=== PATIENT | male | born 1950 | race Caucasian/White ===

== ENCOUNTER 2016-11-24 04:46 | Inpatient (IN) | payer MEDICARE, OTHER ==
[~2016-11-24] VITALS: Ht 182.9 cm; Wt 147.0 kg
[~2016-11-24 04:46] MED LIST: ASPI-482 PO; CARV3.12 PO; DILT120C97 PO; DOXY100T PO; FLUT1DIS3 IH; FURO-68 PO; METF500T4 PO; POTA10TA5 PO; PRED-299 PO; PROAIR HFA8.5 GM INH; PROVENTIL HFA6.7 GM IH; ZOLP10TA PO
[2016-11-24 04:56] VITALS: BP 109/72
[2016-11-24] MEDS ORDERED: ATOR10TA PO (05:38)
[2016-11-24] MEDS ORDERED: BUDE10.2 IH (05:38)
[2016-11-24] MEDS ORDERED: HYDR-2762 PO (05:38)
[2016-11-24] MEDS ORDERED: MELO-156 PO (05:38)
[2016-11-24] MEDS ORDERED: CARV6.25 PO (05:38)
[2016-11-24] MEDS ORDERED: ACETAMINOPHEN 325 MG TABLET. PO PRN (06:00)
[2016-11-24] MEDS ORDERED: GUAIFENESIN/CODEINE 100mg/10mg 5 ML LIQUID. PO PRN (06:00)
[2016-11-24] MEDS ORDERED: MORPHINE SULFATE 2 MG/ML DISP.SYRIN. IV PRN (06:00)
[2016-11-24] MEDS ORDERED: ONDANSETRON PF 4 MG/2 ML VIAL. IV PRN (06:00)
[2016-11-24] MEDS ORDERED: ALBUTEROL SULFATE 2.5 MG/3 ML NEBU. NEB PRN (06:15)
[2016-11-24 07:15] VITALS: BP 120/79
[2016-11-24] MEDS ORDERED: ALBUTEROL SULFATE 2.5 MG/3 ML NEBU. NEB SCH (08:00)
[2016-11-24 08:09] LABS: BASO # 0.7 x10^3/uL (0.0-0.2); BASO % 1 % (0-3); EOS % 1 % (0-3); HEMATOCRIT 40.2 % (39.0-53.0); HEMOGLOBIN 12.1 g/dL (13.0-17.5); LYMPH # 2.4 x10^3/uL (1.0-4.8); LYMPH % 4 % (24-48); MEAN CORPUSCULAR HEMOGLOBIN 30 pg (25-35); MEAN CORPUSCULAR HGB CONC 30 g/dL (31-37); MEAN CORPUSCULAR VOLUME 99 fL (79-100); MONO % 6 % (0-9); NEUT % 88 % (31-73); PLATELET COUNT 176 x10^3/uL (140-400); RED BLOOD COUNT 4.06 x10^6/uL (4.30-5.70); RED CELL DISTRIBUTION WIDTH 17.3 % (11.5-14.5)
[2016-11-24 08:16] LABS: INR 1.3 (0.8-1.1); PROTHROMBIN TIME PATIENT 15.1 SEC (11.7-14.0)
[2016-11-24 08:26] LABS: WHITE BLOOD COUNT 60.1 x10^3/uL (4.0-11.0)
[2016-11-24 08:45] LABS: ALBUMIN 3.1 g/dL (3.4-5.0); ALBUMIN/GLOBULIN RATIO 0.9 (1.0-1.7); CALCIUM 8.3 mg/dL (8.5-10.1); CREATININE 0.9 mg/dL (0.7-1.3); GFR 84.2; MAGNESIUM 1.6 mg/dL (1.8-2.4); TOTAL BILIRUBIN 0.5 mg/dL (0.2-1.0); TOTAL PROTEIN 6.5 g/dL (6.4-8.2)
[2016-11-24] MEDS: BUDESONIDE 0.5 MG/2 ML NEBU. NEB SCH ×2 (08:45→19:49)
[2016-11-24] MEDS: IPRATRPIUM/ALBUTEROL 0.5/2.5MG 3 ML NEBU. NEB SCH ×4 (08:45→19:49)
[2016-11-24] MEDS ORDERED: NON FORMULARY ITEM (Fluticasone/Salmeterol (Advair 250-50 Diskus) 1 PUFF) IH SCH (09:00)
[2016-11-24] MEDS ORDERED: NON FORMULARY ITEM (Budesonide/Formoterol Fumarate (Symbicort 160-4.5 Mcg Inhaler) 2 PUFF) IH SCH (09:00)
--- NOTE | 2016-11-24 09:15 | PDOC ---
Provider Note Provider Note dictated LYSSA WOODSON MD Nov 24, 2016 09:15
[2016-11-24 09:20] LABS: NUCLEATED RBC 2; PLT ESTIMATE ADEQUATE (ADEQUATE)
[2016-11-24 09:21] LABS: ANISOCYTOSIS PRESENT; POLYCHROMASIA PRESENT
[2016-11-24] MEDS: POTASSIUM CHLORIDE 10 MEQ TABLET.ER. PO SCH (09:22)
[2016-11-24] MEDS: CARVEDILOL 6.25 MG TABLET. PO SCH ×2 (09:23→17:53)
[2016-11-24] MEDS: METFORMIN 500 MG TABLET. PO SCH ×2 (09:23→17:53)
[2016-11-24] MEDS: DILTIAZEM HCL 120 MG CAP.ER.24H PO SCH (09:23)
[2016-11-24] MEDS: FUROSEMIDE 40 MG TABLET. PO SCH (09:24)
[2016-11-24] MEDS: MELOXICAM 7.5 MG TABLET PO SCH (09:24)
[2016-11-24] MEDS: ASPIRIN ENTERIC COATED 81 MG TABLET.DR. PO SCH (09:24)
--- NOTE | 2016-11-24 09:27 | PDOC2 ---
INES PAUL FIRE CONTROLMAN 11/24/16 0927: CARDIAC CONSULT DATE OF CONSULT Date of Consult DATE: 11/24/16 TIME: 09:25 REASON FOR CONSULT Reason for Consult: CHF REFERRING PHYSICIAN Referring Physician: Dr. Rendon SOURCE Source: Chart review, Patient HISTORY OF PRESENT ILLNESS HISTORY OF PRESENT ILLNESS This is a 66 yo male who initially presented to [facility] with complaints of increasing shortness of breath. Patient reports ongoing SOA for the last couple of days. Was in to see his PCP Tuesday and was told her had "blood cancer" and was apparently referred to the ED. Denies any recent chest pain, orthopnea, LE edema, dizziness, diaphoresis, or nausea/vomiting. No recent illness/fevers. Does report non-productive cough over the last few days. At [facility], WBC noted to be 69.19. Transfer recommended for oncology consult. Transfer initially arranged at [facility], but patient insisted on [facility]. Additional labs obtained at [place] include NT Pro BNP 3060 and troponin 0.01. CXR impression: some hilar prominence which may be from venous congestion with no large pleural effusions. EKG with AFIB, rate of 100. Patient reports compliance with medications. Per chart review, stress test in 01/2011 and 11/2011 with perfusion defect, at which time patient had declined cardiac cath. Patient was followed by our service in April of 2016, for which he was transferred from [facility] for a mildly abnormal MPI with preserved LV function. Cardiac catheterization was discussed at that time, for which patient opted for medical management and was to follow up with routine providers at [facility]. PAST MEDICAL HISTORY Past Medical History Cardiovascular: AFIB (not anticoagulated due to non-compliance per record review), CHF (chronic diastolic) Pulmonary: COPD (with chronic respiratory failure and home oxygen), Other ( sleep apnea untreated with CPAP) GI: Other (morbid obesity with BMI of 44) Endocrine: Diabetes (type II) PAST SURGICAL HISTORY Past Surgical History Appendectomy, Cholecystectomy, Cataract Removal (bilateral), Hernia Repair (BIH , umbilical) FAMILY HISTORY Family History Cancer (mother), Coronary Artery Disease (mother), Diabetes (mother, sister) SOCIAL HISTORY Social History Smoke: No (1989; 30 pack year history) ALCOHOL: none (1 beer/day) Drugs: None Lives with friends CURRENT MEDICATIONS CURRENT MEDICATIONS Current Medications Medications (Trade) Dose Ordered Sig/Daryl Route PRN Reason Start Time Stop Time Status Last Admin Dose Admin Budesonide (Pulmicort) 0.5 mg RTBID [facility] 11/24/16 08:00 11/24/16 08:45 Albuterol/ Ipratropium (Duoneb) 3 ml RTQID [facility] 11/24/16 08:00 11/24/16 08:45 ALLERGIES ALLERGIES: Coded Allergies: No Known Allergies (Verified Allergy, Unknown, 05/04/16) ROS Review of System 14 point ROS conducted with pertinent positives noted above in HPI. PHYSICAL EXAM General: Alert, Oriented X3, Cooperative, No acute distress HEENT: Atraumatic, Mucous membr. moist/pink Lungs: Other (diminished bases, fine exp wheeze ) Heart: Normal S1, Normal S2, No murmurs, Other (IRRR; not on tele ) Abdomen: Soft, Other (obese ) Extremities: No edema, Normal pulses Skin: No breakdown, No significant lesion Neuro: Normal speech, Sensation intact Psych/Mental Status: Mental status NL, Mood NL MUSCULOSKELETAL: Full range of motion without pain VITALS VITALS Vital Signs Date Time Temp Pulse Resp B/P Pulse Ox O2 Delivery O2 Flow Rate FiO2 11/24/16 08:49 96 Nasal Cannula 3.0 11/24/16 07:15 98.8 83 20 120/79 98.8 LABS Lab: Laboratory Tests Test 11/24/16 07:45 11/24/16 08:00 White Blood Count 60.1x10^3/uL (4.0-11.0) Red Blood Count 4.06x10^6/uL (4.30-5.70) Hemoglobin 12.1g/dL (13.0-17.5) Hematocrit 40.2% (39.0-53.0) Mean Corpuscular Volume 99fL (79-100) Mean Corpuscular Hemoglobin 30pg (25-35) Mean Corpuscular Hemoglobin Concent 30g/dL (31-37) Red Cell Distribution Width 17.3% (11.5-14.5) Platelet Count 176x10^3/uL (140-400) Neutrophils (%) (Auto) 88% (31-73) Lymphocytes (%) (Auto) 4% (24-48) Monocytes (%) (Auto) 6% (0-9) Eosinophils (%) (Auto) 1% (0-3) Basophils (%) (Auto) 1% (0-3) Neutrophils # (Auto) 53.1x10^3uL (1.8-7.7) Lymphocytes # (Auto) 2.4x10^3/uL (1.0-4.8) Monocytes # (Auto) 3.7x10^3/uL (0.0-1.1) Eosinophils # (Auto) 0.3x10^3/uL (0.0-0.7) Basophils # (Auto) 0.7x10^3/uL (0.0-0.2) Segmented Neutrophils % 30% (35-66) Band Neutrophils % 31% (0-9) Lymphocytes % 9% (24-48) Monocytes % 8% (0-10) Metamyelocytes % 3% (0-0) Myelocytes % 19% (0-0) Nucleated Red Blood Cells 2 Platelet Estimate Adequate (ADEQUATE) Polychromasia Present Basophilic Stippling Present Anisocytosis Present Prothrombin Time 15.1SEC (11.7-14.0) Prothromb Time International Ratio 1.3 (0.8-1.1) Sodium Level 144mmol/L (136-145) Potassium Level 4.0mmol/L (3.5-5.1) Chloride Level 101mmol/L (98-107) Carbon Dioxide Level 39mmol/L (21-32) Anion Gap 4 (6-14) Blood Urea Nitrogen 12mg/dL (8-26) Creatinine 0.9mg/dL (0.7-1.3) Estimated GFR (Cockcroft-Gault) 84.2 BUN/Creatinine Ratio 13 (6-20) Glucose Level 130mg/dL (70-99) Calcium Level 8.3mg/dL (8.5-10.1) Magnesium Level 1.6mg/dL (1.8-2.4) Total Bilirubin 0.5mg/dL (0.2-1.0) Aspartate Amino Transf (AST/SGOT) 26U/L (15-37) Alanine Aminotransferase (ALT/SGPT) 15U/L (16-63) Alkaline Phosphatase 47U/L (46-116) Total Protein 6.5g/dL (6.4-8.2) Albumin 3.1g/dL (3.4-5.0) Albumin/Globulin Ratio 0.9 (1.0-1.7) Glucose (Fingerstick) 132mg/dL (70-99) ECHOCARDIOGRAM ECHOCARDIOGRAM <Conclusion> This is a limited 2D study to assess ejection fraction. The left ventricle is mildly dilated. There is normal left ventricular wall thickness. There is normal LV segmental wall motion. Left ventricle systolic function is normal. The estimated ejection fraction is 55-60%. The left ventricular diastolic function was not determined. The right ventricle is mildly dilated but with normal function. The left atrium is mildly dilated. The pulmonary artery pressure was not determined. DATE: 09/16/15 14 ASSESSMENT/PLAN ASSESSMENT/PLAN 1. Mild acute on chronic diastolic heart failure 2. Acute on chronic respiratory failure with AE COPD 3. Leukocytosis 4. Chronic atrial fib 5. Hyperlipidemia 6. Hypertension 7. Hypomagnesemia 8. Diabetes 9. Morbid obesity 10 . h/o abnormal MPI Recommendations Place on tele Rate controlled with Cardizem and Coreg. On ASA for stroke prevention. [id number] score 4, correlating with a moderate-high risk for stroked. Consider for addition of OAC. ? candidate with clear documentation of med non- compliance in past. Appears compensated- aggressive diuresis not presently warranted. Continue with routine oral diuresis. Workup of leukocytosis per Hem/Onc Continue with medical management as patient appears stable from CV perspective. Could consider further ischemic workup, once hem/onc workup conducted. Problems: BEBO ADEN MD 11/24/16 1832: CARDIAC CONSULT ALLERGIES ALLERGIES: Coded Allergies: No Known Allergies (Verified Allergy, Unknown, 05/04/16) ASSESSMENT/PLAN ASSESSMENT/PLAN Patient seen and examined. Agree with above nurse practitioner noted. 66-year-old male presenting with various complaints. In the past he has declined interventions. At this present time his acute issues appear to be hematologic. He does not have active chest pain. Dyspnea is chronic. We will optimize his medical status in preparation for any hematologic workup. After he has been stabilized from a hematology standpoint we'll then pursue any ischemic evaluation as necessary. check echo Problems: INES PAUL APRN Nov 24, 2016 09:27 BEBO ADEN MD Nov 24, 2016 18:32
--- NOTE | 2016-11-24 10:18 | RAD ---
Portable chest, 11/24/2016: History: Shortness of breath No previous chest radiographs are available at this time for comparison purposes. The heart is within normal limits in size. Prominence of the right hilum is probably due to vascular structures. The pulmonary vascularity is not congested. No acute infiltrate is seen. There is no evidence of pleural fluid. Moderate hypertrophic spurring is present in the spine. IMPRESSION: No acute cardiopulmonary abnormality is detected.
[2016-11-24] MEDS: CEFTRIAXONE SODIUM 1 GM in IV NORMAL SALINE 50ML 50 ML IV SCH (10:29)
--- NOTE | 2016-11-24 10:46 | PDOC1 ---
History and Physical Date of Admission Date of Admission DATE: 11/24/16 TIME: 10:39 Identification/Chief Complaint Chief Complaint transfer from [facility] for CHF and COPD and leukocytosis 60s Problems: Source Source: Caregiver, Chart review, Patient History of Present Illness History of Present Illness 66 y.o obese [place] male, lives at home went to [facility] last night for SOA, leg edema, Was dx tehre to have COPD and CHF, got nebs, lasix, but on labs marked WBC at 69, new to pt,.I last saw him in Apr 2016 for the ff: 1, ABN MPI, distal defect 2. HTN 3. DM 2 on OHA 4. MOrbid Obesity BMI 44 5. COPD WBC were I believe to be normal then He denies any hx leukemia or fam hx, denies easy brusing or weight loss, WBC rpt this AM is 60s not recently on steroids CHD and COPD seem to be compensated currently, on lasix and nebs and empiric rocephin,. He is home O2 dependent, 28/02 Past Medical History Cardiovascular: AFIB, CHF Pulmonary: COPD, Other GI: Other Endocrine: Diabetes Past Surgical History Past Surgical History: Appendectomy, Cholecystectomy, Cataract Removal, Hernia Repair Family History Family History: Cancer, Coronary Artery Disease, Diabetes Social History Smoke: Quit ALCOHOL: none Drugs: None Current Problem List Problem List Problems Medical Problems: (1) COPD with acute exacerbation Status: Acute (2) Leukocytosis, unspecified Status: Acute Problems: Current Medications Current Medications Current Medications Aspirin (Ecotrin) 81 mg DAILY PO Last administered on 11/24/16 09:24; Start at 09:00 Atorvastatin Calcium (Lipitor) 40 mg QHS PO ; Start 11/24/16 at 21:00 Carvedilol (Coreg) 6.25 mg BIDWMEALS PO Last administered on 11/24/16 09:23; Start 11/24/16 at 08:00 Diltiazem HCl (Cardizem 24hr Cd) 120 mg DAILY PO Last administered on 09:23; Start 11/24/16 at 09:00 Furosemide (Lasix) 40 mg DAILY08 PO Last administered on 11/24/16 09:24; Start 11/24/16 at 08:00 Meloxicam (Mobic) 7.5 mg DAILY PO Last administered on 11/24/16 09:24; Start 11/24/16 at 09:00 Metformin HCl (Glucophage) 500 mg BIDWMEALS PO Last administered on 11/24/16 09:23; Start 11/24/16 at 08:00 Non-Formulary Medication 2 puff BID IH ; Start 11/24/16 at 09:00; Status UNV Non-Formulary Medication 1 puff BID IH ; Start 11/24/16 at 09:00; Status UNV Potassium Chloride (Klor-Con) 10 meq DAILYWBKFT PO Last administered on 09:22; Start 11/24/16 at 08:00 Zolpidem Tartrate (Ambien) 5 mg PRN QHS PRN PO ; Start 11/24/16 at 06:15 Budesonide (Pulmicort) 0.5 mg RTBID NEB Last administered on 11/24/16 08:45; Start 11/24/16 at 08:00 Albuterol Sulfate (Ventolin Neb Soln) 2.5 mg RTQID NEB ; Start 11/24/16 at 08:00 ; Status Cancel Albuterol/ Ipratropium (Duoneb) 3 ml RTQID NEB Last administered on 11/24/16 08:45; Start 11/24/16 at 08:00 Albuterol Sulfate (Ventolin Neb Soln) 2.5 mg PRN Q2HRS PRN NEB SHORTNESS OF BREATH; Start 11/24/16 at 06:15 Morphine Sulfate 2 mg PRN Q2HR PRN IV SEVERE PAIN; Start 11/24/16 at 06:00 Acetaminophen/ Hydrocodone Bitart (Lortab 5/325) 1 tab PRN Q6HRS PRN PO MODERATE PAIN; Start 11/24/16 at 06:00 Acetaminophen (Tylenol) 650 mg PRN Q6HRS PRN PO MILD PAIN; Start 11/24/16 at 06 :00 Ondansetron HCl (Zofran) 4 mg PRN Q6HRS PRN IV NAUSEA/VOMITING; Start 11/24/16 at 06:00 Guaifenesin/ Codeine Phosphate 20 ml 20 ml PRN Q6HRS PRN PO COUGH; Start at 06:00 Ceftriaxone Sodium/Sodium Chloride (Rocephin/Iv Sodium Chloride 0.9% 50ml) 50 ml @ 100 mls/hr Q24H IV Last administered on 11/24/16t 10:29; Start 11/24/16 at 09:00 Active Scripts Active Reported Hydrocodone-Apap 7.5-325 (Hydrocodone Bit/Acetaminophen) 1 Each Tablet 1 Tab PO PRN Q6HRS PRN Meloxicam 7.5 Mg Tablet 1 Tab PO DAILY Coreg (Carvedilol) 6.25 Mg Tablet 1 Tab PO BID Symbicort 160-4.5 Mcg Inhaler (Budesonide/Formoterol Fumarate) 10.2 Gm Hfa.aer.ad 2 Puff IH BID Lipitor (Atorvastatin Calcium) 10 Mg Tablet 1 Tab PO QHS Metformin Hcl 500 Mg Tablet 1 Tab PO BID next dose tonight at bedtime 05-05 Diltiazem 24HR Cd (Diltiazem Hcl) 120 Mg Cap.er.24h 1 Cap PO DAILY next dose tomorrow 05-06 at 8:00 AM Proventil Hfa Inhaler (Albuterol Sulfate) 6.7 Gm Hfa.aer.ad 1 Puff IH PRN Q4HRS PRN Proair Hfa Inhaler (Albuterol Sulfate) 8.5 Gm Hfa.aer.ad 1 Puff INH PRN Q6HRS PRN Ambien (Zolpidem Tartrate) 10 Mg Tablet 1 Tab PO HS next dose tonight at bedtime 05-05 Deltasone (Prednisone) 20 Mg Tablet 10 Mg PO next dose tomorrow 05-06 at 8:00 AM Klor-Con 10 (Potassium Chloride) 10 Meq Tablet.er 1 Tab PO DAILY next dose tomorrow 05-06 at 8:00 AM Lasix (Furosemide) 40 Mg Tablet 1 Tab PO PRN PRN Advair 250-50 Diskus (Fluticasone/Salmeterol) 1 Each Disk.w.dev 1 Puff IH BID Doxycycline Hyclate 100 Mg Tablet 1 Tab PO BID Aspir 81 (Aspirin) 81 Mg Tablet.dr 1 Tab PO DAILY next dose tomorrow 05-06 at 8:00 AM Allergies Allergies: Coded Allergies: No Known Allergies (Verified Allergy, Unknown, 05/04/16) ROS General: No: Appetite, Chills, Fatigue, Malaise, Night Sweats, Other PSYCHOLOGICAL ROS: No: Anxiety, Behavioral Disorder, Concentration difficultie , Decreased libido, Depression, Disorientation, Hallucinations, Hostility, Irritablity, Memory difficulties, Mood Swings, Obsessive thoughts, Other, Physical abuse, Sexual abuse, Sleep disturbances, Suicidal ideation Eyes: No Blurry vision, No Decreased vision, No Double vision, No Dry eyes, No Excessive tearing, No Eye Pain, No Itchy Eyes, No Loss of vision, No Other, No Photophobia, No Scotomata, No Uses contacts, No Uses glasses HEENT: No: Epistaxis, Heacaches, Hearing change, Nasal congestion, Nasal discharge, Oral lesions, Other, Sinus pain, Sneezing, Snoring, Sore Throat, Tinnitus, Vertigo, Visual Changes, Vocal changes ALLERGY AND IMMUNOLOGY: No: Hives, Insect Bite Sensitivity, Itchy/Watery Eyes, Nasal Congestion, Other, Post Nasal Drip, Seasonal Allergies Hematological and Lymphatic: No: Bleeding Problems, Blood Clots, Blood Transfusions, Brusing, Night Sweats, Other, Pallor, Swollen Lymph Nodes ENDOCRINE: No: Breast Changes, Galactorrhea, Hair Pattern Changes, Hot Flashes , Malaise/lethargy, Mood Swings, Other, Palpitations, Polydipsia/polyuria, Skin Changes, Temperature Intolerance, Unexpected Weight Changes Breast: No New/Changing Breast Lumps, No Nipple changes, No Nipple discharge, No Other Respiratory: YES: SOB with excertion, Shortness of breath Cardiovascular: No Chest Pain, No Edema, No Lt Headedness, No Orthopnea, No Other (leg edema), No Palpitations, No Paroxysmal Noc. Dyspnea Gastrointestinal: No Abdominal Pain, No Constipation, No Diarrhea, No Hematochezia, No Melena, No Nausea, No Other, No Vomiting Genitourinary: No , No , No , No , No , No , No , No Discharge, No Dysuria, No Flank Pain, No Frequency, No Hematuria, No Incontinence, No Other, No Pain, No Retention, No Urgency Musculoskeletal: No Gait Disturbance, No Joint Pain, No Joint Stiffness, No Joint Swelling, No Muscle Pain, No Muscular Weakness, No Other, No Pain In:, No Swelling In: Neurological: No Behavorial Changes, No Bowel/Bladder ControlChng, No Confusion , No Dizziness, No Gait Disturbance, No Headaches, No Impaired Coord/balance, No Memory Loss, No Numbness/Tingling, No Other, No Seizures, No Speech Problems , No Tremors, No Visual Changes, No Weakness Skin: No Acne, No Dry Skin, No Eczema, No Hair Changes, No Lumps, No Mole Changes, No Mottling, No Nail Changes, No Other, No Pruritus, No Rash, No Skin Lesion Changes Physical Exam General: Alert, Oriented X3, Cooperative, No acute distress HEENT: Atraumatic, PERRLA Lungs: Normal air movement Heart: S1S2, RRR, no thrills, no rubs, no gallops Cardiovascular: S1, S2 Breasts: Normal Abdomen: Normal bowel sounds, Soft, No tenderness, No hepatosplenomegaly, No masses Male Genitals Exam: normal genitalia Rectal Exam: not examined PELVIC: Nml ext genitalia Extremities: No cyanosis, Other (plus 1 -2 edema) Skin: No rashes, No breakdown, No significant lesion Neuro: Normal gait, Normal speech, Strength at 5/5 X4 ext, Normal tone, Sensation intact, Cranial nerves 3-12 NL, Reflexes 2+ Psych/Mental Status: Mental status NL, Mood NL Vitals Vitals Vital Signs Date Time Temp Pulse Resp B/P Pulse Ox O2 Delivery O2 Flow Rate FiO2 11/24/16 09:23 83 120/79 11/24/16 08:49 96 Nasal Cannula 3.0 11/24/16 07:15 98.8 20 98.8 Labs Labs Laboratory Tests Test 11/24/16 07:45 11/24/16 08:00 White Blood Count 60.1x10^3/uL (4.0-11.0) Red Blood Count 4.06x10^6/uL (4.30-5.70) Hemoglobin 12.1g/dL (13.0-17.5) Hematocrit 40.2% (39.0-53.0) Mean Corpuscular Volume 99fL (79-100) Mean Corpuscular Hemoglobin 30pg (25-35) Mean Corpuscular Hemoglobin Concent 30g/dL (31-37) Red Cell Distribution Width 17.3% (11.5-14.5) Platelet Count 176x10^3/uL (140-400) Neutrophils (%) (Auto) 88% (31-73) Lymphocytes (%) (Auto) 4% (24-48) Monocytes (%) (Auto) 6% (0-9) Eosinophils (%) (Auto) 1% (0-3) Basophils (%) (Auto) 1% (0-3) Neutrophils # (Auto) 53.1x10^3uL (1.8-7.7) Lymphocytes # (Auto) 2.4x10^3/uL (1.0-4.8) Monocytes # (Auto) 3.7x10^3/uL (0.0-1.1) Eosinophils # (Auto) 0.3x10^3/uL (0.0-0.7) Basophils # (Auto) 0.7x10^3/uL (0.0-0.2) Segmented Neutrophils % 30% (35-66) Band Neutrophils % 31% (0-9) Lymphocytes % 9% (24-48) Monocytes % 8% (0-10) Metamyelocytes % 3% (0-0) Myelocytes % 19% (0-0) Nucleated Red Blood Cells 2 Platelet Estimate Adequate (ADEQUATE) Polychromasia Present Basophilic Stippling Present Anisocytosis Present Prothrombin Time 15.1SEC (11.7-14.0) Prothromb Time International Ratio 1.3 (0.8-1.1) Sodium Level 144mmol/L (136-145) Potassium Level 4.0mmol/L (3.5-5.1) Chloride Level 101mmol/L (98-107) Carbon Dioxide Level 39mmol/L (21-32) Anion Gap 4 (6-14) Blood Urea Nitrogen 12mg/dL (8-26) Creatinine 0.9mg/dL (0.7-1.3) Estimated GFR (Cockcroft-Gault) 84.2 BUN/Creatinine Ratio 13 (6-20) Glucose Level 130mg/dL (70-99) Calcium Level 8.3mg/dL (8.5-10.1) Magnesium Level 1.6mg/dL (1.8-2.4) Total Bilirubin 0.5mg/dL (0.2-1.0) Aspartate Amino Transf (AST/SGOT) 26U/L (15-37) Alanine Aminotransferase (ALT/SGPT) 15U/L (16-63) Alkaline Phosphatase 47U/L (46-116) Total Protein 6.5g/dL (6.4-8.2) Albumin 3.1g/dL (3.4-5.0) Albumin/Globulin Ratio 0.9 (1.0-1.7) Glucose (Fingerstick) 132mg/dL (70-99) Laboratory Tests Test 11/24/16 07:45 11/24/16 08:00 White Blood Count 60.1x10^3/uL (4.0-11.0) Red Blood Count 4.06x10^6/uL (4.30-5.70) Hemoglobin 12.1g/dL (13.0-17.5) Hematocrit 40.2% (39.0-53.0) Mean Corpuscular Volume 99fL (79-100) Mean Corpuscular Hemoglobin 30pg (25-35) Mean Corpuscular Hemoglobin Concent 30g/dL (31-37) Red Cell Distribution Width 17.3% (11.5-14.5) Platelet Count 176x10^3/uL (140-400) Neutrophils (%) (Auto) 88% (31-73) Lymphocytes (%) (Auto) 4% (24-48) Monocytes (%) (Auto) 6% (0-9) Eosinophils (%) (Auto) 1% (0-3) Basophils (%) (Auto) 1% (0-3) Neutrophils # (Auto) 53.1x10^3uL (1.8-7.7) Lymphocytes # (Auto) 2.4x10^3/uL (1.0-4.8) Monocytes # (Auto) 3.7x10^3/uL (0.0-1.1) Eosinophils # (Auto) 0.3x10^3/uL (0.0-0.7) Basophils # (Auto) 0.7x10^3/uL (0.0-0.2) Segmented Neutrophils % 30% (35-66) Band Neutrophils % 31% (0-9) Lymphocytes % 9% (24-48) Monocytes % 8% (0-10) Metamyelocytes % 3% (0-0) Myelocytes % 19% (0-0) Nucleated Red Blood Cells 2 Platelet Estimate Adequate (ADEQUATE) Polychromasia Present Basophilic Stippling Present Anisocytosis Present Prothrombin Time 15.1SEC (11.7-14.0) Prothromb Time International Ratio 1.3 (0.8-1.1) Sodium Level 144mmol/L (136-145) Potassium Level 4.0mmol/L (3.5-5.1) Chloride Level 101mmol/L (98-107) Carbon Dioxide Level 39mmol/L (21-32) Anion Gap 4 (6-14) Blood Urea Nitrogen 12mg/dL (8-26) Creatinine 0.9mg/dL (0.7-1.3) Estimated GFR (Cockcroft-Gault) 84.2 BUN/Creatinine Ratio 13 (6-20) Glucose Level 130mg/dL (70-99) Calcium Level 8.3mg/dL (8.5-10.1) Magnesium Level 1.6mg/dL (1.8-2.4) Total Bilirubin 0.5mg/dL (0.2-1.0) Aspartate Amino Transf (AST/SGOT) 26U/L (15-37) Alanine Aminotransferase (ALT/SGPT) 15U/L (16-63) Alkaline Phosphatase 47U/L (46-116) Total Protein 6.5g/dL (6.4-8.2) Albumin 3.1g/dL (3.4-5.0) Albumin/Globulin Ratio 0.9 (1.0-1.7) Glucose (Fingerstick) 132mg/dL (70-99) VTE Prophylaxis Ordered VTE Prophylaxis Devices: Yes VTE Pharmacological Prophylaxi: Yes Assessment/Plan Assessment/Plan 1. COPD flare, O2 dependent 24/7 2. CHF combined? exacerbation POA, better after ER tx 3. Chronic LE swelling 4. Obesity with mild to mod pCM 5. LEukocytosis, difftls include leukomoid rxn vs leukemias - might need BM biopsy - await heme onc - maybe make NPO post mN Nebs, rocephin, supportive meds, lasix I and O Elyes while on diuresis PT/OT Admit 2 MN Hook tele Serial CBCs Dw pt and RN at bedside FELIBERTO ANDERSON MD Nov 24, 2016 10:46
--- NOTE | 2016-11-24 11:08 | CONS ---
DATE OF CONSULTATION: 11/24/2016 ATTENDING PHYSICIAN: Dr. Rendon. REASON FOR CONSULTATION: Dyspnea. HISTORY OF PRESENT ILLNESS: The patient is a 66-year-old male with history of chronic obstructive airway disease. He smoked for at least 35-40 years before quitting in the s. He came to the hospital complaining of shortness of breath and wheezing. He also had a cough which was nonproductive. He denied any fever, denied any chills, no chest pain, no lower extremity edema. He says he has been evaluated for CECE and is in the process of waiting for a titration study. I do not have any chest x-ray available yet and the labs showed a white cell count of 60,000 which was markedly elevated. His hemoglobin was 12.1. I have been asked to see him for further evaluation. PAST MEDICAL HISTORY: Significant for history of AFib, not on anticoagulation due to noncompliance, history of chronic diastolic CHF, history of COPD, he denies use of home oxygen, history of sleep apnea, he is awaiting CPAP titration, history of morbid obesity and type 2 diabetes. PAST SURGICAL HISTORY: Appendectomy, cholecystectomy, cataract removal, hernia repair. FAMILY HISTORY: Noncontributory to lungs. Mother had cancer and coronary artery disease. SOCIAL HISTORY: A 82-faev-ynil tobacco history, quit in 1989. REVIEW OF SYSTEMS: Twelve-point systems obtained, pertinent positives discussed in my history of present illness, otherwise noncontributory. All systems that were negative were reviewed as well. MEDICATIONS: All reviewed as listed in the MRAD including DuoNeb. PHYSICAL EXAMINATION: VITAL SIGNS: Stable, afebrile, pulse ox 96% on 3 liters. NECK: Supple. LUNGS: Diminished breath sounds. No crackles or wheezes. CARDIOVASCULAR: Regular rate and rhythm. ABDOMEN: Soft, obese. EXTREMITIES: With trace pitting edema. LABORATORY DATA: Reviewed. INR is 1.3. His BUN is 12, and creatinine of 0.9. His white cell count was 60,000. Last year during his prior admission in April 2016, it was 19.6. IMPRESSION: 1. Dyspnea secondary to acute exacerbation of chronic obstructive pulmonary disease triggered by acute bronchitis. 2. Cough, most likely acute bronchitis. We will obtain chest x-ray for further evaluation. 3. Markedly elevated white cell count. Could be a leukemoid reaction. Monitor for improvement and if it does not improve, consider ID/Hematology consult. 4. History of obstructive sleep apnea, not on CPAP, according to history. He is awaiting for CPAP titration study. 5. Acute hypoxic respiratory failure secondary to chronic obstructive pulmonary disease exacerbation and acute bronchitis. RECOMMENDATIONS: 1. Continue with present DuoNebs. 2. Continue with present oxygen with gradual wean. 3. Obtain chest x-ray. 4. Add empiric antibiotic. 5. Monitor white cell count. 6. Further recommendations to follow after review of chest x-ray. LYSSA WOODSON MD DR: AGUILA/penny JOB#: [id number] / [id number] SAMUEL
[2016-11-24 11:12] VITALS: BP 110/60
--- NOTE | 2016-11-24 12:04 | PDOC ---
Provider Note Provider Note Onc consult dictated- [id number] Outside records reviewed. Chronic, worsening neutrophilia, lymphocytosis, monocytosis with rare metamyelocytes seen concerning for myeloproliferative disorder such as CML. Bmbx, uric acid, abd U/S requested. Will take 1.5 wk to obtain full results so will need outpt f/u. IRENA FAM DO Nov 24, 2016 12:04
--- NOTE | 2016-11-24 14:20 | RAD ---
Abdominal ultrasound, 11/24/2016: History: Leukocytosis, evaluate liver and spleen The study is compromised by abundant bowel gas. This obscures the pancreas and central retroperitoneum. The gallbladder is small. Its martinez are thickened measuring approximately 8 mm. The lack of gallbladder distention may be contributing to this appearance. No gallstones are seen. The liver is within normal limits in size. No hepatic mass or bile duct dilatation is seen. Limited views of the right kidney are unremarkable. The spleen is poorly visualized but appears to be within normal limits in size. The left kidney was not visualized. IMPRESSION: 1. Limited exam due to abundant bowel gas. 2. Gallbladder wall thickening without evidence of gallstones. This finding can be due to a variety of causes including hypoproteinemia, liver disease, renal disease or cholecystitis. 3. Normal-sized spleen.
[2016-11-24 15:18] VITALS: BP 112/64
[2016-11-24] MEDS: ALLOPURINOL 300 MG TABLET. PO SCH (17:52)
[2016-11-24 19:35] VITALS: BP 104/57
[2016-11-24] MEDS: ATORVASTATIN CALCIUM 40 MG TABLET. PO SCH (21:49)
[2016-11-24 23:58] VITALS: BP 103/60
[2016-11-25 03:40] VITALS: BP 93/77
--- NOTE | 2016-11-25 03:52 | CONS ---
DATE OF CONSULTATION: 11/24/2016 REFERRING PROVIDER: Dr. Rendon. REASON FOR CONSULTATION: Elevated white blood cell count. HISTORY OF PRESENT ILLNESS: The patient is a 66-year-old male who was admitted to the hospital with fever, shortness of breath, cough. He is a very poor historian and cannot provide me many more other details. It seems he has a history of COPD, on chronic oxygen and heart failure as well. Prednisone is listed on his outpatient medication list, but he states that he has not recently been taking it. He has been noted to have an elevated white blood cell count here of 60.1 with strong neutrophil predominance. I have reviewed his outside labs from the [facility] as well showing that this neutrophilia has consistently progressed, but actually persisted over the last year since 11/2015. His hemoglobin and platelets have previously remained stable; however, there is an increase in the absolute neutrophil, lymphocyte and monocyte counts. He has also had a slight increase in metamyelocytes as well. Peripheral smear reviewed most recently by an outside pathologist in 04/2016 showed absolute neutrophilia and monocytosis with reactive changes. There were rare immature metamyelocytes and occasional large granular lymphocytes as well. He was going to establish care with an outside oncologist next month, but has never seen one yet. He reports that his weight has been stable. He has not had recurrent fevers or drenching night sweats previously. All information obtained from outside records as again he is a poor historian. PAST MEDICAL HISTORY: Atrial fibrillation, not on anticoagulation due to poor compliance; chronic diastolic heart failure; chronic respiratory failure, on 4 liters oxygen at home; COPD; CAD; diabetes; morbid obesity; sleep apnea. PAST SURGICAL HISTORY: Cataracts bilaterally, cholecystectomy, hernia repair. FAMILY HISTORY: Mom had diabetes and some form of cancer, multiple sisters with diabetes as well. SOCIAL HISTORY: He is single. Previously smoked, but quit in the after having smoked 1 pack a day for 30 years. Rare alcohol use. ALLERGIES: No known drug allergies. CURRENT MEDICATIONS: Tylenol, Lortab, albuterol, DuoNeb, aspirin, Lipitor, Pulmicort, Coreg, Rocephin, diltiazem, Lasix, Robitussin, Mobic, metformin, morphine, Zofran, potassium chloride, Ambien. REVIEW OF SYSTEMS: A 12-point review of systems attempted, but somewhat limited due to the patient being a poor historian. He reports recent chills, shortness of breath and cough, otherwise negative. PHYSICAL EXAMINATION: VITAL SIGNS: Temperature 97.9, pulse 85, respiratory rate 20, blood pressure 110/60, 94% O2 on 3 liters. GENERAL: He is alert and oriented, morbidly obese, in no distress at this time. HEENT: Extraocular muscles are intact. Sclerae are without icterus. Mucous membranes are moist. CARDIOVASCULAR: Heart is regular in rhythm and rate. LUNGS: Clear to auscultation bilaterally. ABDOMEN: Soft, nontender, obese. EXTREMITIES: 1+ edema in bilateral lower extremities. NEUROLOGIC: No focal deficits. IMAGING AND LABORATORY DATA: Pertinent lab findings here and also in outside records reviewed. There is no previous abdominal imaging available. ASSESSMENT AND PLAN: The patient is a 66-year-old male with the following medical problems: Persistent and consistently increasing neutrophilia, monocytosis and lymphocytosis concerning for an underlying myeloproliferative disorder. I have requested a bone marrow biopsy and abdominal ultrasound. I will also order a uric acid level, given the rare metamyelocytes and other occasional immature myeloid cells seen. I am concerned this may not only be reactive in nature. The full results of his bone marrow biopsy will likely take approximately 1.5 weeks to return, so I will need to schedule outpatient followup to review his full results. I will hold off on checking BCR-ABL on the peripheral blood, so that it can be performed on the bone marrow biopsy tomorrow. Thank you for allowing me to participate in his care. I will return on Tuesday to follow up on these pending results. ADDENDUM: Abdominal ultrasound did not show splenomegaly or any liver changes. Uric acid mildly high at 7.6 so will start allopurinol 300 mg empirically until results of bone marrow biopsy can be obtained. Will set up follow up in clinic in 1 week. IRENA FAM DO DR: French JOB#: [id number] / [id number] SAMUEL
[2016-11-25] MEDS: IPRATRPIUM/ALBUTEROL 0.5/2.5MG 3 ML NEBU. NEB SCH ×4 (06:22→19:47)
[2016-11-25] MEDS: BUDESONIDE 0.5 MG/2 ML NEBU. NEB SCH ×2 (06:22→19:47)
[2016-11-25 07:00] VITALS: BP 101/63
[2016-11-25] MEDS ORDERED: NALOXONE 0.4 MG/ML VIAL. ONE (09:14)
[2016-11-25] MEDS ORDERED: FLUMAZENIL 0.5 MG/5 ML VIAL. IV ONE (09:14)
[2016-11-25] MEDS ORDERED: MIDAZOLAM HCL/PF 5 MG/5 ML VIAL. ONE (09:15)
[2016-11-25] MEDS ORDERED: FENTANYL PF 250 MCG/5 ML VIAL. ONE (09:15)
--- NOTE | 2016-11-25 09:28 | PDOC ---
PULMONARY PROGRESS NOTES Subjective feels better Vitals Vital Signs Date Time Temp Pulse Resp B/P Pulse Ox O2 Delivery O2 Flow Rate FiO2 11/25/16 07:00 98.2 82 16 101/63 93 Nasal Cannula 3.0 98.2 General: Alert, No acute distress Lungs: Other (decrease bs) Cardiovascular: S1, S2 Abdomen: Soft Neuro Exam: Alert Extremities: Other (1+edema) Labs Laboratory Tests Test 11/24/16 07:45 11/24/16 08:00 11/24/16 11:33 11/24/16 17:04 White Blood Count 60.1x10^3/uL (4.0-11.0) Red Blood Count 4.06x10^6/uL (4.30-5.70) Hemoglobin 12.1g/dL (13.0-17.5) Hematocrit 40.2% (39.0-53.0) Mean Corpuscular Volume 99fL (79-100) Mean Corpuscular Hemoglobin 30pg (25-35) Mean Corpuscular Hemoglobin Concent 30g/dL (31-37) Red Cell Distribution Width 17.3% (11.5-14.5) Platelet Count 176x10^3/uL (140-400) Neutrophils (%) (Auto) 88% (31-73) Lymphocytes (%) (Auto) 4% (24-48) Monocytes (%) (Auto) 6% (0-9) Eosinophils (%) (Auto) 1% (0-3) Basophils (%) (Auto) 1% (0-3) Neutrophils # (Auto) 53.1x10^3uL (1.8-7.7) Lymphocytes # (Auto) 2.4x10^3/uL (1.0-4.8) Monocytes # (Auto) 3.7x10^3/uL (0.0-1.1) Eosinophils # (Auto) 0.3x10^3/uL (0.0-0.7) Basophils # (Auto) 0.7x10^3/uL (0.0-0.2) Segmented Neutrophils % 30% (35-66) Band Neutrophils % 31% (0-9) Lymphocytes % 9% (24-48) Monocytes % 8% (0-10) Metamyelocytes % 3% (0-0) Myelocytes % 19% (0-0) Nucleated Red Blood Cells 2 Platelet Estimate Adequate (ADEQUATE) Polychromasia Present Basophilic Stippling Present Anisocytosis Present Prothrombin Time 15.1SEC (11.7-14.0) Prothromb Time International Ratio 1.3 (0.8-1.1) Sodium Level 144mmol/L (136-145) Potassium Level 4.0mmol/L (3.5-5.1) Chloride Level 101mmol/L (98-107) Carbon Dioxide Level 39mmol/L (21-32) Anion Gap 4 (6-14) Blood Urea Nitrogen 12mg/dL (8-26) Creatinine 0.9mg/dL (0.7-1.3) Estimated GFR (Cockcroft-Gault) 84.2 BUN/Creatinine Ratio 13 (6-20) Glucose Level 130mg/dL (70-99) Uric Acid 7.6mg/dL (3.5-7.2) Calcium Level 8.3mg/dL (8.5-10.1) Magnesium Level 1.6mg/dL (1.8-2.4) Total Bilirubin 0.5mg/dL (0.2-1.0) Aspartate Amino Transf (AST/SGOT) 26U/L (15-37) Alanine Aminotransferase (ALT/SGPT) 15U/L (16-63) Alkaline Phosphatase 47U/L (46-116) Total Protein 6.5g/dL (6.4-8.2) Albumin 3.1g/dL (3.4-5.0) Albumin/Globulin Ratio 0.9 (1.0-1.7) Glucose (Fingerstick) 132mg/dL (70-99) 110mg/dL (70-99) 143mg/dL (70-99) Test 11/25/16 07:11 Glucose (Fingerstick) 94mg/dL (70-99) Laboratory Tests Test 11/24/16 11:33 11/24/16 17:04 11/25/16 07:11 Glucose (Fingerstick) 110mg/dL (70-99) 143mg/dL (70-99) 94mg/dL (70-99) Medications Active Scripts Medications Dose Route/Sig Days Date Category Dose Instructions Hydrocodone-Apap 7.5-325 (Hydrocodone Bit/Acetaminophen) 1 Each Tablet 1 Tab PO PRN Q6HRS PRN 11/24/16 Reported Meloxicam 7.5 Mg Tablet 1 Tab PO DAILY 11/24/16 Reported Coreg (Carvedilol) 6.25 Mg Tablet 1 Tab PO BID 11/24/16 Reported Symbicort 160-4.5 Mcg Inhaler (Budesonide/Formoterol Fumarate) 10.2 Gm Hfa.aer.ad 2 Puff IH BID 11/24/16 Reported Lipitor (Atorvastatin Calcium) 10 Mg Tablet 1 Tab PO QHS 11/24/16 Reported Metformin Hcl 500 Mg Tablet 1 Tab PO BID 05/04/16 Reported next dose tonight at bedtime 05-05 Diltiazem 24HR Cd (Diltiazem Hcl) 120 Mg Cap.er.24h 1 Cap PO DAILY 05/04/16 Reported next dose tomorrow - at 8:00 AM Proventil Hfa Inhaler (Albuterol Sulfate) 6.7 Gm Hfa.aer.ad 1 Puff IH PRN Q4HRS PRN 05/04/16 Reported Proair Hfa Inhaler (Albuterol Sulfate) 8.5 Gm Hfa.aer.ad 1 Puff INH PRN Q6HRS PRN 05/04/16 Reported Ambien (Zolpidem Tartrate) 10 Mg Tablet 1 Tab PO HS 05/04/16 Reported next dose tonight at bedtime 05-05 Deltasone (Prednisone) 20 Mg Tablet 10 Mg PO 05/04/16 Reported next dose tomorrow - at 8:00 AM Klor-Con 10 (Potassium Chloride) 10 Meq Tablet.er 1 Tab PO DAILY 05/04/16 Reported next dose tomorrow - at 8:00 AM Lasix (Furosemide) 40 Mg Tablet 1 Tab PO PRN PRN 05/04/16 Reported Advair 250-50 Diskus (Fluticasone/Salmeterol) 1 Each Disk.w.dev 1 Puff IH BID 05/04/16 Reported Doxycycline Hyclate 100 Mg Tablet 1 Tab PO BID 05/04/16 Reported Aspir 81 (Aspirin) 81 Mg Tablet.dr 1 Tab PO DAILY 05/04/16 Reported next dose tomorrow - at 8:00 AM Impression . 1. Dyspnea secondary to acute exacerbation of chronic obstructive pulmonary disease triggered by respiratory tract infection vs CHF 2. Abnormal chest x-ray c/w mild diffuse interstitial infiltrates . will get ct chest for further evaluation. 3. Markedly elevated white cell count. Could be a leukemoid reaction. Monitor for improvement and if it does not improve, consider ID/Hematology consult. 4. History of obstructive sleep apnea, not on CPAP, according to history. He is awaiting for CPAP titration study. 5. Acute hypoxic respiratory failure secondary to chronic obstructive pulmonary disease exacerbation and acute bronchitis. Plan . 1. Continue with present DuoNebs. 2. Continue with present oxygen with gradual wean. 3. Obtain ct chest 4. empiric antibiotic. 5. Monitor white cell count.? leukemia 6. Further recommendations to follow after review of ct chest LYSSA WOODSON MD Nov 25, 2016 09:28
[2016-11-25] MEDS ORDERED: LIDOCAINE 1% / SOD BICARB 8.4% 20 ML VIAL. IJ ONE (10:52)
[2016-11-25 10:58] VITALS: BP 118/79
[2016-11-25] MEDS: MELOXICAM 7.5 MG TABLET PO SCH (11:13)
[2016-11-25] MEDS: POTASSIUM CHLORIDE 10 MEQ TABLET.ER. PO SCH (11:14)
[2016-11-25] MEDS: CARVEDILOL 6.25 MG TABLET. PO SCH ×2 (11:15→16:36)
[2016-11-25] MEDS: DILTIAZEM HCL 120 MG CAP.ER.24H PO SCH (11:15)
[2016-11-25] MEDS: FUROSEMIDE 40 MG TABLET. PO SCH (11:15)
[2016-11-25] MEDS: ASPIRIN ENTERIC COATED 81 MG TABLET.DR. PO SCH (11:16)
[2016-11-25] MEDS: CEFTRIAXONE SODIUM 1 GM in IV NORMAL SALINE 50ML 50 ML IV SCH (11:16)
[2016-11-25] MEDS: ALLOPURINOL 300 MG TABLET. PO SCH (11:16)
[2016-11-25] MEDS: METFORMIN 500 MG TABLET. PO SCH ×2 (11:16→16:36)
--- NOTE | 2016-11-25 11:53 | PDOC ---
PROGRESS NOTES Chief Complaint Chief Complaint 1. Leukocytosis, r/o MDS 2. COPD flare, O2 dependent 28/02 3. CHF combined stable 4. Chronic LE swelling, stable 5. Obesity with mild to mod pCM History of Present Illness History of Present Illness NO respi issues WBC same, plan for BM biopsy then ff up As OP 1 week heme onc for results ( takes 1.5 weeks to come out) For CT chest by pulmo PT recs SNU- pt lives with friends PLAN; CT chest cont nebs etc PT/OT SW for SNU BM planned for [facility] post [facility] RN Vitals Vitals Vital Signs Date Time Temp Pulse Resp B/P Pulse Ox O2 Delivery O2 Flow Rate FiO2 11/25/16 11:15 82 118/79 11/25/16 10:58 98.2 14 90 Nasal Cannula 3.0 98.2 Physical Exam General: Alert, Oriented X3, Cooperative, No acute distress Heart: Normal S1, Normal S2, No murmurs, Other (IRRR; not on tele ) Lungs: Other (decrease bs) Abdomen: Normal bowel sounds, Soft, No tenderness, No hepatosplenomegaly, No masses Extremities: No cyanosis, Other (plus 1 -2 edema) Skin: No rashes, No breakdown, No significant lesion Labs LABS Laboratory Tests Test 11/24/16 17:04 11/25/16 07:11 11/25/16 11:37 Glucose (Fingerstick) 143mg/dL (70-99) 94mg/dL (70-99) 173mg/dL (70-99) Review of Systems Review of Systems neg 14 pt Assessment and Plan Assessmemt and Plan Problems Medical Problems: (1) COPD with acute exacerbation Status: Acute (2) Leukocytosis, unspecified Status: Acute Problems: Comment Review of Relevant I have reviewed the following items brianna (where applicable) has been applied. Labs Laboratory Tests Test 11/24/16 07:45 11/24/16 08:00 11/24/16 11:33 11/24/16 17:04 White Blood Count 60.1x10^3/uL (4.0-11.0) Red Blood Count 4.06x10^6/uL (4.30-5.70) Hemoglobin 12.1g/dL (13.0-17.5) Hematocrit 40.2% (39.0-53.0) Mean Corpuscular Volume 99fL (79-100) Mean Corpuscular Hemoglobin 30pg (25-35) Mean Corpuscular Hemoglobin Concent 30g/dL (31-37) Red Cell Distribution Width 17.3% (11.5-14.5) Platelet Count 176x10^3/uL (140-400) Neutrophils (%) (Auto) 88% (31-73) Lymphocytes (%) (Auto) 4% (24-48) Monocytes (%) (Auto) 6% (0-9) Eosinophils (%) (Auto) 1% (0-3) Basophils (%) (Auto) 1% (0-3) Neutrophils # (Auto) 53.1x10^3uL (1.8-7.7) Lymphocytes # (Auto) 2.4x10^3/uL (1.0-4.8) Monocytes # (Auto) 3.7x10^3/uL (0.0-1.1) Eosinophils # (Auto) 0.3x10^3/uL (0.0-0.7) Basophils # (Auto) 0.7x10^3/uL (0.0-0.2) Segmented Neutrophils % 30% (35-66) Band Neutrophils % 31% (0-9) Lymphocytes % 9% (24-48) Monocytes % 8% (0-10) Metamyelocytes % 3% (0-0) Myelocytes % 19% (0-0) Nucleated Red Blood Cells 2 Platelet Estimate Adequate (ADEQUATE) Polychromasia Present Basophilic Stippling Present Anisocytosis Present Prothrombin Time 15.1SEC (11.7-14.0) Prothromb Time International Ratio 1.3 (0.8-1.1) Sodium Level 144mmol/L (136-145) Potassium Level 4.0mmol/L (3.5-5.1) Chloride Level 101mmol/L (98-107) Carbon Dioxide Level 39mmol/L (21-32) Anion Gap 4 (6-14) Blood Urea Nitrogen 12mg/dL (8-26) Creatinine 0.9mg/dL (0.7-1.3) Estimated GFR (Cockcroft-Gault) 84.2 BUN/Creatinine Ratio 13 (6-20) Glucose Level 130mg/dL (70-99) Uric Acid 7.6mg/dL (3.5-7.2) Calcium Level 8.3mg/dL (8.5-10.1) Magnesium Level 1.6mg/dL (1.8-2.4) Total Bilirubin 0.5mg/dL (0.2-1.0) Aspartate Amino Transf (AST/SGOT) 26U/L (15-37) Alanine Aminotransferase (ALT/SGPT) 15U/L (16-63) Alkaline Phosphatase 47U/L (46-116) Total Protein 6.5g/dL (6.4-8.2) Albumin 3.1g/dL (3.4-5.0) Albumin/Globulin Ratio 0.9 (1.0-1.7) Glucose (Fingerstick) 132mg/dL (70-99) 110mg/dL (70-99) 143mg/dL (70-99) Test 11/25/16 07:11 11/25/16 11:37 Glucose (Fingerstick) 94mg/dL (70-99) 173mg/dL (70-99) Laboratory Tests Test 11/24/16 17:04 11/25/16 07:11 11/25/16 11:37 Glucose (Fingerstick) 143mg/dL (70-99) 94mg/dL (70-99) 173mg/dL (70-99) Medications Current Medications Aspirin (Ecotrin) 81 mg DAILY PO Last administered on 11/25/16 11:16; Start at 09:00 Atorvastatin Calcium (Lipitor) 40 mg QHS PO Last administered on 11/24/16 21: 49; Start 11/24/16 at 21:00 Carvedilol (Coreg) 6.25 mg BIDWMEALS PO Last administered on 11/25/16 11:15; Start 11/24/16 at 08:00 Diltiazem HCl (Cardizem 24hr Cd) 120 mg DAILY PO Last administered on 11:15; Start 11/24/16 at 09:00 Furosemide (Lasix) 40 mg DAILY08 PO Last administered on 11/25/16 11:15; Start 11/24/16 at 08:00 Meloxicam (Mobic) 7.5 mg DAILY PO Last administered on 11/25/16 11:13; Start 11/24/16 at 09:00 Metformin HCl (Glucophage) 500 mg BIDWMEALS PO Last administered on 11/25/16 11:16; Start 11/24/16 at 08:00 Non-Formulary Medication 2 puff BID IH ; Start 11/24/16 at 09:00; Status UNV Non-Formulary Medication 1 puff BID IH ; Start 11/24/16 at 09:00; Status UNV Potassium Chloride (Klor-Con) 10 meq DAILYWBKFT PO Last administered on 11:14; Start 11/24/16 at 08:00 Zolpidem Tartrate (Ambien) 5 mg PRN QHS PRN PO ; Start 11/24/16 at 06:15 Budesonide (Pulmicort) 0.5 mg RTBID NEB Last administered on 11/25/16 06:22; Start 11/24/16 at 08:00 Albuterol Sulfate (Ventolin Neb Soln) 2.5 mg RTQID NEB ; Start 11/24/16 at 08:00 ; Status Cancel Albuterol/ Ipratropium (Duoneb) 3 ml RTQID NEB Last administered on 11/25/16 06:22; Start 11/24/16 at 08:00 Albuterol Sulfate (Ventolin Neb Soln) 2.5 mg PRN Q2HRS PRN NEB SHORTNESS OF BREATH; Start 11/24/16 at 06:15 Morphine Sulfate 2 mg PRN Q2HR PRN IV SEVERE PAIN; Start 11/24/16 at 06:00 Acetaminophen/ Hydrocodone Bitart (Lortab 5/325) 1 tab PRN Q6HRS PRN PO MODERATE PAIN; Start 11/24/16 at 06:00 Acetaminophen (Tylenol) 650 mg PRN Q6HRS PRN PO MILD PAIN; Start 11/24/16 at 06 :00 Ondansetron HCl (Zofran) 4 mg PRN Q6HRS PRN IV NAUSEA/VOMITING; Start 11/24/16 at 06:00 Guaifenesin/ Codeine Phosphate 20 ml 20 ml PRN Q6HRS PRN PO COUGH; Start at 06:00 Ceftriaxone Sodium/Sodium Chloride (Rocephin/Iv Sodium Chloride 0.9% 50ml) 50 ml @ 100 mls/hr Q24H IV Last administered on 11/25/16 11:16; Start 11/24/16 at 09:00 Allopurinol (Zyloprim) 300 mg DAILY PO Last administered on 11/25/16 11:16; Start 11/24/16 at 16:00 Naloxone HCl (Narcan) 0.4 mg STK-MED ONCE .ROUTE ; Start 11/25/16 at 09:14; Stop 11/25/16 at 09:15; Status DC Flumazenil (Romazicon) 0.5 mg STK-MED ONCE IV ; Start 11/25/16 at 09:14; Stop at 09:15; Status DC Midazolam HCl (Versed) 5 mg STK-MED ONCE .ROUTE ; Start 11/25/16 at 09:15; Stop 11/25/16 at 09:16; Status DC Fentanyl Citrate (Fentanyl 5ml Vial) 250 mcg STK-MED ONCE .ROUTE ; Start at 09:15; Stop 11/25/16 at 09:16; Status DC Lidocaine/Sodium Bicarbonate (Buffered Lidocaine 1%) 20 ml STK-MED ONCE IJ ; Start 11/25/16 at 10:52; Stop 11/25/16 at 10:53; Status DC Active Scripts Active Reported Hydrocodone-Apap 7.5-325 (Hydrocodone Bit/Acetaminophen) 1 Each Tablet 1 Tab PO PRN Q6HRS PRN Meloxicam 7.5 Mg Tablet 1 Tab PO DAILY Coreg (Carvedilol) 6.25 Mg Tablet 1 Tab PO BID Symbicort 160-4.5 Mcg Inhaler (Budesonide/Formoterol Fumarate) 10.2 Gm Hfa.aer.ad 2 Puff IH BID Lipitor (Atorvastatin Calcium) 10 Mg Tablet 1 Tab PO QHS Metformin Hcl 500 Mg Tablet 1 Tab PO BID next dose tonight at bedtime 05-05 Diltiazem 24HR Cd (Diltiazem Hcl) 120 Mg Cap.er.24h 1 Cap PO DAILY next dose tomorrow 05-06 at 8:00 AM Proventil Hfa Inhaler (Albuterol Sulfate) 6.7 Gm Hfa.aer.ad 1 Puff IH PRN Q4HRS PRN Proair Hfa Inhaler (Albuterol Sulfate) 8.5 Gm Hfa.aer.ad 1 Puff INH PRN Q6HRS PRN Ambien (Zolpidem Tartrate) 10 Mg Tablet 1 Tab PO HS next dose tonight at bedtime 05-05 Deltasone (Prednisone) 20 Mg Tablet 10 Mg PO next dose tomorrow 05-06 at 8:00 AM Klor-Con 10 (Potassium Chloride) 10 Meq Tablet.er 1 Tab PO DAILY next dose tomorrow 05-06 at 8:00 AM Lasix (Furosemide) 40 Mg Tablet 1 Tab PO PRN PRN Advair 250-50 Diskus (Fluticasone/Salmeterol) 1 Each Disk.w.dev 1 Puff IH BID Doxycycline Hyclate 100 Mg Tablet 1 Tab PO BID Aspir 81 (Aspirin) 81 Mg Tablet.dr 1 Tab PO DAILY next dose tomorrow 05-06 at 8:00 AM Vitals/I & O Vital Sign - Last 24 Hours 11/24/16 11/24/16 11/24/16 11/24/16 12:43 15:18 16:28 17:53 Temp 98.4 98.4 Pulse 88 88 Resp 18 B/P 112/64 112/64 Pulse Ox 96 94 O2 Delivery Nasal Cannula Nasal Cannula Nasal Cannula O2 Flow Rate 3.0 3.0 3.0 11/24/16 11/24/16 11/24/16 11/24/16 19:35 19:48 19:51 20:00 Temp 98.2 98.2 Pulse 74 Resp 18 B/P 104/57 Pulse Ox 94 94 94 O2 Delivery Nasal Cannula Nasal Cannula Nasal Cannula Nasal Cannula O2 Flow Rate 3.0 3.0 3.0 3.0 11/24/16 11/25/16 11/25/16 11/25/16 23:58 03:40 06:23 06:23 Temp 97.9 98.3 97.9 98.3 Pulse 77 Resp 18 B/P 103/60 93/77 Pulse Ox 91 90 94 94 O2 Delivery Nasal Cannula Nasal Cannula Nasal Cannula Nasal Cannula O2 Flow Rate 3.0 3.0 3.0 3.0 11/25/16 11/25/16 11/25/16 11/25/16 07:00 10:58 11:15 11:15 Temp 98.2 98.2 98.2 98.2 Pulse 82 82 82 82 Resp 16 14 B/P 101/63 118/79 118/79 118/79 Pulse Ox 93 90 O2 Delivery Nasal Cannula Nasal Cannula O2 Flow Rate 3.0 3.0 Intake and Output 11/24/16 11/24/16 11/25/16 15:00 23:00 07:00 Intake Total 520 ml 280 ml 300 ml Output Total 600 ml 500 ml 350 ml Balance -80 ml -220 ml -50 ml FELIBERTO ANDERSON MD Nov 25, 2016 11:53
--- NOTE | 2016-11-25 12:45 | PDOC ---
CARDIO Progress Notes Date and Time Date of Service 11/25/16 Time of Evaluation 1230 Subjective Subjective: No Chest Pain, No shortness of breath, No Palpitations Comments: no acute events overnight Vitals Vitals Vital Signs Date Time Temp Pulse Resp B/P Pulse Ox O2 Delivery O2 Flow Rate FiO2 11/25/16 12:21 Nasal Cannula 3.0 11/25/16 11:15 82 118/79 11/25/16 10:58 98.2 14 90 98.2 Weight Weight [ ] Input and Output Intake and Output Intake and Output 11/25/16 06:59 Intake Total 1100 ml Output Total 1450 ml Balance -350 ml Intake Oral 1100 ml Output Urine Total 1450 ml Laboratory Labs Laboratory Tests Test 11/24/16 17:04 11/25/16 07:11 11/25/16 11:37 Glucose (Fingerstick) 143mg/dL (70-99) 94mg/dL (70-99) 173mg/dL (70-99) Physical Exam HEENT: Neck Supple W Full Motion Chest: Symmetric LUNGS: Other (fine expiratory wheezes ) Heart: S1S2, irregularly irregular (tele: AFIB rate 80) Abdomen: Soft N/T, Other (obese ) Extremities: No Edema, No Calf Tenderness Neurology: alert, oriented, follow commands Assessment Assessment 1. Mild acute on chronic diastolic heart failure; compensated 2. Acute on chronic respiratory failure with AE COPD 3. Leukocytosis 4. Chronic atrial fib 5. Hyperlipidemia 6. Hypertension 7. ? Myeloproliferative disorder; bone marrow biopsy pending 8. Diabetes 9. Morbid obesity 10 . h/o abnormal MPI Recommendations Echo pending; continue optimization therapy Cardizem and Coreg for rate control ASA for stroke prevention; ? candidate for OAC therapy- sister unsure whether he takes medications routinely. Continue with medical management as patient appears stable from CV perspective. Consider further ischemic workup, on an outpatient basis following hematologic stabilization Further recommendations pending diagnostic results. Hem/Onc outpatient follow up INES PAUL APRN Nov 25, 2016 12:45
--- NOTE | 2016-11-25 14:20 | RAD ---
CT of the chest without contrast, 11/25/2016: History: Interstitial infiltrates Noncontrast scans were obtained as requested. There is mild calcific plaquing of the thoracic aorta. The ascending aorta is mildly dilated measuring 4.3 cm in width. The aortic arch and descending aorta are unremarkable. Moderate scattered coronary artery calcifications are present. The heart is generally enlarged. Right paratracheal lymph nodes are at the upper limits of normal in size. There are calcified lymph nodes at the left hilum. There are calcified granulomata in the left lower lobe. There is moderate interlobular septal thickening in both lungs. There are a few scattered linear opacities compatible with scarring and/or atelectasis, most prominent adjacent to the oblique fissure on the left. Mild mosaic attenuation, particularly in the upper lobes, is probably due to scattered groundglass opacities. There are peripheral air-containing cysts medially in the right middle lobe compatible with honeycombing, traction bronchiectasis or a cluster of subpleural blebs. No significant volume of pleural fluid is identified. Incidental note is made of a small left renal cyst. IMPRESSION: 1. Moderate interlobular septal thickening and mild patchy groundglass opacities in both lungs suggesting low-grade pulmonary edema. A component of fibrosis cannot be excluded. 2. Scattered bilateral areas of linear atelectasis and/or scarring. 3. Peripheral honeycombing or traction bronchiectasis in the medial aspect of the right middle lobe. 4. Aortic atherosclerosis with mild dilatation of the ascending aorta. 5. Moderate coronary artery calcifications. 6. Borderline mediastinal adenopathy. PQRS Compliance Statement: One or more of the following individualized dose reduction techniques were utilized for this examination: 1. Automated exposure control 2. Adjustment of the mA and/or kV according to patient size 3. Use of iterative reconstruction technique
[2016-11-25 15:00] VITALS: BP 111/61
--- NOTE | 2016-11-25 16:49 | CARD ---
APPROVED REPORT EXAM: Two-dimensional and M-mode echocardiogram with Doppler and color Doppler. Other Information Quality : Good Rhythm : Atrial Flutter INDICATION Congestive Heart Failure RISK FACTORS Obesity 2D DIMENSIONS RVDd4.4 (2.9-3.5cm)Left Atrium(2D)5.4 (1.6-4.0cm) IVSd1.1 (0.7-1.1cm)Aortic Root(2D)2.9 (2.0-3.7cm) LVDd5.8 (3.9-5.9cm)LVOT Diameter2.4 (1.8-2.4cm) PWd1.1 (0.7-1.1cm)LVDs3.8 (2.5-4.0cm) FS (%) 35.1 %SV106.9 ml LVEF(%)63.6 (>50%) Aortic Valve AoV Peak Timmy.190.8cm/sAoV VTI41.8cm AO Peak GR.14.6mmHgLVOT Peak Timmy.115.2cm/s AO Mean GR.8mmHgAVA (VMAX)2.64cm2 Mitral Valve MV E Peak Gr.6mmHgMV E Mean Gr.2mmHg Pulmonary Valve PV Peak Nwurqefv70.4cm/s Tricuspid Valve TR P. Eshhppfl112bw/sTR Peak Gr.34mmHg LEFT VENTRICLE The left ventricle is normal size. There is borderline concentric left ventricular hypertrophy. The l eft ventricular systolic function is normal and the ejection fraction is within normal range. The Eje ction Fraction is 65 %. There is normal LV segmental wall motion. Tissue Doppler imaging reveals mode rate left ventricular diastolic dysfunction. RIGHT VENTRICLE The right ventricle is normal size. There is normal right ventricular wall thickness. The right ventr icular systolic function is normal. ATRIA The left atrium is severely dilated. The right atrium is moderately dilated. The interatrial septum i s intact with no evidence for an atrial septal defect or patent foramen ovale as noted on 2-D or Dopp ler imaging. AORTIC VALVE Doppler and Color Flow revealed mild aortic regurgitation. There is no significant aortic valvular st enosis. MITRAL VALVE There is no evidence of mitral valve prolapse. There is no mitral valve stenosis. Doppler and Color F low revealed mild mitral regurgitation. TRICUSPID VALVE Doppler and Color Flow revealed trace tricuspid regurgitation. The pulmonary artery systolic pressure is estimated at 37 mmHg. There is mild pulmonary hypertension. PULMONIC VALVE Doppler and Color Flow revealed mild pulmonic valvular regurgitation. GREAT VESSELS The aortic root is normal in size. The IVC is normal in size and collapses >50% with inspiration. PERICARDIAL EFFUSION There is no evidence of significant pericardial effusion. Critical Notification Critical Value: No <Conclusion> The left ventricular systolic function is normal and the ejection fraction is within normal range. Th e Ejection Fraction is 65 %. There is normal LV segmental wall motion. Doppler and Color Flow revealed mild aortic regurgitation. Moderate to severe bi-atrial enlargement.
[2016-11-25 19:48] VITALS: BP 109/70
[2016-11-25] MEDS: ATORVASTATIN CALCIUM 40 MG TABLET. PO SCH (20:49)
[2016-11-25] MEDS: HYDROCODONE/APAP 5/325MG TABLET. PO PRN (22:19)
[2016-11-25 23:21] VITALS: BP 98/55
[2016-11-25] MEDS: ZOLPIDEM 5 MG TABLET. PO PRN (23:34)
[2016-11-26] VITALS (10 sets, daily range): BP systolic 107–156; BP diastolic 60–95
[2016-11-26 06:03] LABS: BASO # 1.5 x10^3/uL (0.0-0.2); BASO % 3 % (0-3); EOS % 1 % (0-3); HEMATOCRIT 41.4 % (39.0-53.0); HEMOGLOBIN 12.6 g/dL (13.0-17.5); LYMPH # 2.9 x10^3/uL (1.0-4.8); LYMPH % 6 % (24-48); MEAN CORPUSCULAR HEMOGLOBIN 30 pg (25-35); MEAN CORPUSCULAR HGB CONC 31 g/dL (31-37); MEAN CORPUSCULAR VOLUME 99 fL (79-100); MONO % 6 % (0-9); NEUT % 84 % (31-73); PLATELET COUNT 184 x10^3/uL (140-400); RED BLOOD COUNT 4.19 x10^6/uL (4.30-5.70)
[2016-11-26 06:28] LABS: CREATININE 1.1 mg/dL (0.7-1.3); GFR 66.8; POTASSIUM 4.2 mmol/L (3.5-5.1)
[2016-11-26 07:06] LABS: WHITE BLOOD COUNT 53.4 x10^3/uL (4.0-11.0)
[2016-11-26] MEDS: CARVEDILOL 6.25 MG TABLET. PO SCH ×2 (08:00→17:10)
[2016-11-26] MEDS: BUDESONIDE 0.5 MG/2 ML NEBU. NEB SCH ×2 (08:00→19:51)
[2016-11-26] MEDS: FUROSEMIDE 40 MG TABLET. PO SCH (08:00)
[2016-11-26] MEDS: METFORMIN 500 MG TABLET. PO SCH ×2 (08:00→17:09)
[2016-11-26] MEDS: POTASSIUM CHLORIDE 10 MEQ TABLET.ER. PO SCH (08:00)
[2016-11-26] MEDS: CEFTRIAXONE SODIUM 1 GM in IV NORMAL SALINE 50ML 50 ML IV SCH (08:15)
[2016-11-26] MEDS: ASPIRIN ENTERIC COATED 81 MG TABLET.DR. PO SCH (09:00)
[2016-11-26] MEDS: MELOXICAM 7.5 MG TABLET PO SCH (09:00)
[2016-11-26] MEDS: DILTIAZEM HCL 120 MG CAP.ER.24H PO SCH (09:00)
[2016-11-26] MEDS: ALLOPURINOL 300 MG TABLET. PO SCH (09:00)
--- NOTE | 2016-11-26 09:21 | PDOC ---
PULMONARY PROGRESS NOTES Subjective feels better Vitals Vital Signs Date Time Temp Pulse Resp B/P Pulse Ox O2 Delivery O2 Flow Rate FiO2 11/26/16 07:00 97.8 82 16 107/60 94 Nasal Cannula 3.0 97.8 General: Alert, No acute distress Lungs: Other (decrease bs) Cardiovascular: S1, S2 Abdomen: Soft Neuro Exam: Alert Extremities: Other (1+edema) Labs Laboratory Tests Test 11/24/16 11:33 11/24/16 17:04 11/25/16 07:11 11/25/16 11:37 Glucose (Fingerstick) 110mg/dL (70-99) 143mg/dL (70-99) 94mg/dL (70-99) 173mg/dL (70-99) Test 11/25/16 17:12 11/25/16 21:07 11/26/16 05:45 11/26/16 07:11 Glucose (Fingerstick) 104mg/dL (70-99) 136mg/dL (70-99) 103mg/dL (70-99) White Blood Count 53.4x10^3/uL (4.0-11.0) Red Blood Count 4.19x10^6/uL (4.30-5.70) Hemoglobin 12.6g/dL (13.0-17.5) Hematocrit 41.4% (39.0-53.0) Mean Corpuscular Volume 99fL (79-100) Mean Corpuscular Hemoglobin 30pg (25-35) Mean Corpuscular Hemoglobin Concent 31g/dL (31-37) Red Cell Distribution Width 17.0% (11.5-14.5) Platelet Count 184x10^3/uL (140-400) Neutrophils (%) (Auto) 84% (31-73) Lymphocytes (%) (Auto) 6% (24-48) Monocytes (%) (Auto) 6% (0-9) Eosinophils (%) (Auto) 1% (0-3) Basophils (%) (Auto) 3% (0-3) Neutrophils # (Auto) 45.0x10^3uL (1.8-7.7) Lymphocytes # (Auto) 2.9x10^3/uL (1.0-4.8) Monocytes # (Auto) 3.4x10^3/uL (0.0-1.1) Eosinophils # (Auto) 0.5x10^3/uL (0.0-0.7) Basophils # (Auto) 1.5x10^3/uL (0.0-0.2) Sodium Level 143mmol/L (136-145) Potassium Level 4.2mmol/L (3.5-5.1) Chloride Level 101mmol/L (98-107) Carbon Dioxide Level 41mmol/L (21-32) Anion Gap 1 (6-14) Blood Urea Nitrogen 16mg/dL (8-26) Creatinine 1.1mg/dL (0.7-1.3) Estimated GFR (Cockcroft-Gault) 66.8 Glucose Level 103mg/dL (70-99) Calcium Level 9.0mg/dL (8.5-10.1) Laboratory Tests Test 11/25/16 11:37 11/25/16 17:12 11/25/16 21:07 11/26/16 05:45 Glucose (Fingerstick) 173mg/dL (70-99) 104mg/dL (70-99) 136mg/dL (70-99) White Blood Count 53.4x10^3/uL (4.0-11.0) Red Blood Count 4.19x10^6/uL (4.30-5.70) Hemoglobin 12.6g/dL (13.0-17.5) Hematocrit 41.4% (39.0-53.0) Mean Corpuscular Volume 99fL (79-100) Mean Corpuscular Hemoglobin 30pg (25-35) Mean Corpuscular Hemoglobin Concent 31g/dL (31-37) Red Cell Distribution Width 17.0% (11.5-14.5) Platelet Count 184x10^3/uL (140-400) Neutrophils (%) (Auto) 84% (31-73) Lymphocytes (%) (Auto) 6% (24-48) Monocytes (%) (Auto) 6% (0-9) Eosinophils (%) (Auto) 1% (0-3) Basophils (%) (Auto) 3% (0-3) Neutrophils # (Auto) 45.0x10^3uL (1.8-7.7) Lymphocytes # (Auto) 2.9x10^3/uL (1.0-4.8) Monocytes # (Auto) 3.4x10^3/uL (0.0-1.1) Eosinophils # (Auto) 0.5x10^3/uL (0.0-0.7) Basophils # (Auto) 1.5x10^3/uL (0.0-0.2) Sodium Level 143mmol/L (136-145) Potassium Level 4.2mmol/L (3.5-5.1) Chloride Level 101mmol/L (98-107) Carbon Dioxide Level 41mmol/L (21-32) Anion Gap 1 (6-14) Blood Urea Nitrogen 16mg/dL (8-26) Creatinine 1.1mg/dL (0.7-1.3) Estimated GFR (Cockcroft-Gault) 66.8 Glucose Level 103mg/dL (70-99) Calcium Level 9.0mg/dL (8.5-10.1) Test 11/26/16 07:11 Glucose (Fingerstick) 103mg/dL (70-99) Medications Active Scripts Medications Dose Route/Sig Days Date Category Dose Instructions Hydrocodone-Apap 7.5-325 (Hydrocodone Bit/Acetaminophen) 1 Each Tablet 1 Tab PO PRN Q6HRS PRN 11/24/16 Reported Meloxicam 7.5 Mg Tablet 1 Tab PO DAILY 11/24/16 Reported Coreg (Carvedilol) 6.25 Mg Tablet 1 Tab PO BID 11/24/16 Reported Symbicort 160-4.5 Mcg Inhaler (Budesonide/Formoterol Fumarate) 10.2 Gm Hfa.aer.ad 2 Puff IH BID 11/24/16 Reported Lipitor (Atorvastatin Calcium) 10 Mg Tablet 1 Tab PO QHS 11/24/16 Reported Metformin Hcl 500 Mg Tablet 1 Tab PO BID 05/04/16 Reported next dose tonight at bedtime 9- Diltiazem 24HR Cd (Diltiazem Hcl) 120 Mg Cap.er.24h 1 Cap PO DAILY 05/04/16 Reported next dose tomorrow - at 8:00 AM Proventil Hfa Inhaler (Albuterol Sulfate) 6.7 Gm Hfa.aer.ad 1 Puff IH PRN Q4HRS PRN 05/04/16 Reported Proair Hfa Inhaler (Albuterol Sulfate) 8.5 Gm Hfa.aer.ad 1 Puff INH PRN Q6HRS PRN 05/04/16 Reported Ambien (Zolpidem Tartrate) 10 Mg Tablet 1 Tab PO HS 05/04/16 Reported next dose tonight at bedtime 9- Deltasone (Prednisone) 20 Mg Tablet 10 Mg PO 05/04/16 Reported next dose tomorrow 9- at 8:00 AM Klor-Con 10 (Potassium Chloride) 10 Meq Tablet.er 1 Tab PO DAILY 05/04/16 Reported next dose tomorrow 9-29 at 8:00 AM Lasix (Furosemide) 40 Mg Tablet 1 Tab PO PRN PRN 05/04/16 Reported Advair 250-50 Diskus (Fluticasone/Salmeterol) 1 Each Disk.w.dev 1 Puff IH BID 05/04/16 Reported Doxycycline Hyclate 100 Mg Tablet 1 Tab PO BID 05/04/16 Reported Aspir 81 (Aspirin) 81 Mg Tablet.dr 1 Tab PO DAILY 05/04/16 Reported next dose tomorrow 9- at 8:00 AM Impression . 1. Dyspnea secondary to acute exacerbation of chronic obstructive pulmonary disease triggered by respiratory tract infection and diastolic CHF 2. Abnormal chest x-ray c/w mild diffuse interstitial infiltrates . ct chest with mild CHF 3. Markedly elevated white cell count/ ?MDS. Hematology following. 4. History of obstructive sleep apnea, not on CPAP, according to history. He is awaiting for CPAP titration study. 5. Acute hypoxic respiratory failure secondary to chronic obstructive pulmonary disease exacerbation and acute bronchitis. Plan . 1. Continue with present DuoNebs. 2. Continue with present oxygen with gradual wean. 3. diastolic HF/diuresis per cardiology 4. empiric antibiotic. 5. Monitor white cell count. BM aspiration today LYSSA WOODSON MD Nov 26, 2016 09:21
[2016-11-26 09:22] LABS: % BASOS 4 % (0-3); % EOS 2 % (0-5); NUCLEATED RBC 2; PLT ESTIMATE ADEQUATE (ADEQUATE)
[2016-11-26] MEDS: IPRATRPIUM/ALBUTEROL 0.5/2.5MG 3 ML NEBU. NEB SCH ×4 (09:28→19:51)
--- NOTE | 2016-11-26 10:16 | PDOC ---
PROGRESS NOTES Chief Complaint Chief Complaint 1. Leukocytosis, r/o MDS 2. COPD flare, O2 dependent 28/02 3. CHF combined stable 4. Chronic LE swelling, stable 5. Obesity with mild to mod pCM History of Present Illness History of Present Illness NO respi issues WBC same, plan for BM biopsy today then ff up As OP 1 week heme onc for results (takes 1.5 weeks to come out) PT recs SNU- pt lives with friends CT chest (I james personlaly reviewed) 1. Moderate interlobular septal thickening and mild patchy groundglass opacities in both lungs suggesting low-grade pulmonary edema. A component of fibrosis cannot be excluded. 2. Scattered bilateral areas of linear atelectasis and/or scarring. 3. Peripheral honeycombing or traction bronchiectasis in the medial aspect of the right middle lobe. 4. Aortic atherosclerosis with mild dilatation of the ascending aorta. 5. Moderate coronary artery calcifications. 6. Borderline mediastinal adenopathy. PLAN; BMA today cont nebs etc PT/OT SW for SNU Dw RN Vitals Vitals Vital Signs Date Time Temp Pulse Resp B/P Pulse Ox O2 Delivery O2 Flow Rate FiO2 11/26/16 09:29 98 Nasal Cannula 3.0 11/26/16 09:00 82 107/60 11/26/16 07:00 97.8 16 97.8 Physical Exam General: Alert, Oriented X3, Cooperative, No acute distress Heart: Normal S1, Normal S2, No murmurs, Other (IRRR; not on tele ) Lungs: Other (decrease bs) Abdomen: Normal bowel sounds, Soft, No tenderness, No hepatosplenomegaly, No masses Extremities: No cyanosis, Other (plus 1 -2 edema) Skin: No rashes, No breakdown, No significant lesion Labs LABS Laboratory Tests Test 11/25/16 11:37 11/25/16 17:12 11/25/16 21:07 11/26/16 05:45 Glucose (Fingerstick) 173mg/dL (70-99) 104mg/dL (70-99) 136mg/dL (70-99) White Blood Count 53.4x10^3/uL (4.0-11.0) Red Blood Count 4.19x10^6/uL (4.30-5.70) Hemoglobin 12.6g/dL (13.0-17.5) Hematocrit 41.4% (39.0-53.0) Mean Corpuscular Volume 99fL (79-100) Mean Corpuscular Hemoglobin 30pg (25-35) Mean Corpuscular Hemoglobin Concent 31g/dL (31-37) Red Cell Distribution Width 17.0% (11.5-14.5) Platelet Count 184x10^3/uL (140-400) Neutrophils (%) (Auto) 84% (31-73) Lymphocytes (%) (Auto) 6% (24-48) Monocytes (%) (Auto) 6% (0-9) Eosinophils (%) (Auto) 1% (0-3) Basophils (%) (Auto) 3% (0-3) Neutrophils # (Auto) 45.0x10^3uL (1.8-7.7) Lymphocytes # (Auto) 2.9x10^3/uL (1.0-4.8) Monocytes # (Auto) 3.4x10^3/uL (0.0-1.1) Eosinophils # (Auto) 0.5x10^3/uL (0.0-0.7) Basophils # (Auto) 1.5x10^3/uL (0.0-0.2) Segmented Neutrophils % 24% (35-66) Band Neutrophils % 30% (0-9) Lymphocytes % 6% (24-48) Monocytes % 4% (0-10) Eosinophils % 2% (0-5) Basophils % 4% (0-3) Metamyelocytes % 4% (0-0) Myelocytes % 26% (0-0) Nucleated Red Blood Cells 2 Platelet Estimate Adequate (ADEQUATE) Sodium Level 143mmol/L (136-145) Potassium Level 4.2mmol/L (3.5-5.1) Chloride Level 101mmol/L (98-107) Carbon Dioxide Level 41mmol/L (21-32) Anion Gap 1 (6-14) Blood Urea Nitrogen 16mg/dL (8-26) Creatinine 1.1mg/dL (0.7-1.3) Estimated GFR (Cockcroft-Gault) 66.8 Glucose Level 103mg/dL (70-99) Calcium Level 9.0mg/dL (8.5-10.1) Test 11/26/16 07:11 Glucose (Fingerstick) 103mg/dL (70-99) Review of Systems Review of Systems asleep Assessment and Plan Assessmemt and Plan Problems Medical Problems: (1) COPD with acute exacerbation Status: Acute (2) Leukocytosis, unspecified Status: Acute Problems: Comment Review of Relevant I have reviewed the following items brianna (where applicable) has been applied. Labs Laboratory Tests Test 11/24/16 11:33 11/24/16 17:04 11/25/16 07:11 11/25/16 11:37 Glucose (Fingerstick) 110mg/dL (70-99) 143mg/dL (70-99) 94mg/dL (70-99) 173mg/dL (70-99) Test 11/25/16 17:12 11/25/16 21:07 11/26/16 05:45 11/26/16 07:11 Glucose (Fingerstick) 104mg/dL (70-99) 136mg/dL (70-99) 103mg/dL (70-99) White Blood Count 53.4x10^3/uL (4.0-11.0) Red Blood Count 4.19x10^6/uL (4.30-5.70) Hemoglobin 12.6g/dL (13.0-17.5) Hematocrit 41.4% (39.0-53.0) Mean Corpuscular Volume 99fL (79-100) Mean Corpuscular Hemoglobin 30pg (25-35) Mean Corpuscular Hemoglobin Concent 31g/dL (31-37) Red Cell Distribution Width 17.0% (11.5-14.5) Platelet Count 184x10^3/uL (140-400) Neutrophils (%) (Auto) 84% (31-73) Lymphocytes (%) (Auto) 6% (24-48) Monocytes (%) (Auto) 6% (0-9) Eosinophils (%) (Auto) 1% (0-3) Basophils (%) (Auto) 3% (0-3) Neutrophils # (Auto) 45.0x10^3uL (1.8-7.7) Lymphocytes # (Auto) 2.9x10^3/uL (1.0-4.8) Monocytes # (Auto) 3.4x10^3/uL (0.0-1.1) Eosinophils # (Auto) 0.5x10^3/uL (0.0-0.7) Basophils # (Auto) 1.5x10^3/uL (0.0-0.2) Segmented Neutrophils % 24% (35-66) Band Neutrophils % 30% (0-9) Lymphocytes % 6% (24-48) Monocytes % 4% (0-10) Eosinophils % 2% (0-5) Basophils % 4% (0-3) Metamyelocytes % 4% (0-0) Myelocytes % 26% (0-0) Nucleated Red Blood Cells 2 Platelet Estimate Adequate (ADEQUATE) Sodium Level 143mmol/L (136-145) Potassium Level 4.2mmol/L (3.5-5.1) Chloride Level 101mmol/L (98-107) Carbon Dioxide Level 41mmol/L (21-32) Anion Gap 1 (6-14) Blood Urea Nitrogen 16mg/dL (8-26) Creatinine 1.1mg/dL (0.7-1.3) Estimated GFR (Cockcroft-Gault) 66.8 Glucose Level 103mg/dL (70-99) Calcium Level 9.0mg/dL (8.5-10.1) Laboratory Tests Test 11/25/16 11:37 11/25/16 17:12 11/25/16 21:07 11/26/16 05:45 Glucose (Fingerstick) 173mg/dL (70-99) 104mg/dL (70-99) 136mg/dL (70-99) White Blood Count 53.4x10^3/uL (4.0-11.0) Red Blood Count 4.19x10^6/uL (4.30-5.70) Hemoglobin 12.6g/dL (13.0-17.5) Hematocrit 41.4% (39.0-53.0) Mean Corpuscular Volume 99fL (79-100) Mean Corpuscular Hemoglobin 30pg (25-35) Mean Corpuscular Hemoglobin Concent 31g/dL (31-37) Red Cell Distribution Width 17.0% (11.5-14.5) Platelet Count 184x10^3/uL (140-400) Neutrophils (%) (Auto) 84% (31-73) Lymphocytes (%) (Auto) 6% (24-48) Monocytes (%) (Auto) 6% (0-9) Eosinophils (%) (Auto) 1% (0-3) Basophils (%) (Auto) 3% (0-3) Neutrophils # (Auto) 45.0x10^3uL (1.8-7.7) Lymphocytes # (Auto) 2.9x10^3/uL (1.0-4.8) Monocytes # (Auto) 3.4x10^3/uL (0.0-1.1) Eosinophils # (Auto) 0.5x10^3/uL (0.0-0.7) Basophils # (Auto) 1.5x10^3/uL (0.0-0.2) Segmented Neutrophils % 24% (35-66) Band Neutrophils % 30% (0-9) Lymphocytes % 6% (24-48) Monocytes % 4% (0-10) Eosinophils % 2% (0-5) Basophils % 4% (0-3) Metamyelocytes % 4% (0-0) Myelocytes % 26% (0-0) Nucleated Red Blood Cells 2 Platelet Estimate Adequate (ADEQUATE) Sodium Level 143mmol/L (136-145) Potassium Level 4.2mmol/L (3.5-5.1) Chloride Level 101mmol/L (98-107) Carbon Dioxide Level 41mmol/L (21-32) Anion Gap 1 (6-14) Blood Urea Nitrogen 16mg/dL (8-26) Creatinine 1.1mg/dL (0.7-1.3) Estimated GFR (Cockcroft-Gault) 66.8 Glucose Level 103mg/dL (70-99) Calcium Level 9.0mg/dL (8.5-10.1) Test 11/26/16 07:11 Glucose (Fingerstick) 103mg/dL (70-99) Medications Current Medications Aspirin (Ecotrin) 81 mg DAILY PO Last administered on 11/25/16 11:16; Start at 09:00 Atorvastatin Calcium (Lipitor) 40 mg QHS PO Last administered on 11/25/16 20: 49; Start 11/24/16 at 21:00 Carvedilol (Coreg) 6.25 mg BIDWMEALS PO Last administered on 11/25/16 16:36; Start 11/24/16 at 08:00 Diltiazem HCl (Cardizem 24hr Cd) 120 mg DAILY PO Last administered on 11:15; Start 11/24/16 at 09:00 Furosemide (Lasix) 40 mg DAILY08 PO Last administered on 11/25/16 11:15; Start 11/24/16 at 08:00 Meloxicam (Mobic) 7.5 mg DAILY PO Last administered on 11/25/16 11:13; Start 11/24/16 at 09:00 Metformin HCl (Glucophage) 500 mg BIDWMEALS PO Last administered on 11/25/16 16:36; Start 11/24/16 at 08:00 Non-Formulary Medication 2 puff BID IH ; Start 11/24/16 at 09:00; Status UNV Non-Formulary Medication 1 puff BID IH ; Start 11/24/16 at 09:00; Status UNV Potassium Chloride (Klor-Con) 10 meq DAILYWBKFT PO Last administered on 11:14; Start 11/24/16 at 08:00 Zolpidem Tartrate (Ambien) 5 mg PRN QHS PRN PO Last administered on 11/25/16 23:34; Start 11/24/16 at 06:15 Budesonide (Pulmicort) 0.5 mg RTBID NEB Last administered on 11/25/16 19:47; Start 11/24/16 at 08:00 Albuterol Sulfate (Ventolin Neb Soln) 2.5 mg RTQID NEB ; Start 11/24/16 at 08:00 ; Status Cancel Albuterol/ Ipratropium (Duoneb) 3 ml RTQID NEB Last administered on 11/26/16 09:28; Start 11/24/16 at 08:00 Albuterol Sulfate (Ventolin Neb Soln) 2.5 mg PRN Q2HRS PRN NEB SHORTNESS OF BREATH; Start 11/24/16 at 06:15 Morphine Sulfate 2 mg PRN Q2HR PRN IV SEVERE PAIN; Start 11/24/16 at 06:00 Acetaminophen/ Hydrocodone Bitart (Lortab 5/325) 1 tab PRN Q6HRS PRN PO MODERATE PAIN Last administered on 11/25/16 22:19; Start 11/24/16 at 06:00 Acetaminophen (Tylenol) 650 mg PRN Q6HRS PRN PO MILD PAIN; Start 11/24/16 at 06 :00 Ondansetron HCl (Zofran) 4 mg PRN Q6HRS PRN IV NAUSEA/VOMITING; Start 11/24/16 at 06:00 Guaifenesin/ Codeine Phosphate 20 ml 20 ml PRN Q6HRS PRN PO COUGH; Start at 06:00 Ceftriaxone Sodium/Sodium Chloride (Rocephin/Iv Sodium Chloride 0.9% 50ml) 50 ml @ 100 mls/hr Q24H IV Last administered on 11/26/16 08:15; Start 11/24/16 at 09:00 Allopurinol (Zyloprim) 300 mg DAILY PO Last administered on 11/25/16 11:16; Start 11/24/16 at 16:00 Naloxone HCl (Narcan) 0.4 mg STK-MED ONCE .ROUTE ; Start 11/25/16 at 09:14; Stop 11/25/16 at 09:15; Status DC Flumazenil (Romazicon) 0.5 mg STK-MED ONCE IV ; Start 11/25/16 at 09:14; Stop at 09:15; Status DC Midazolam HCl (Versed) 5 mg STK-MED ONCE .ROUTE ; Start 11/25/16 at 09:15; Stop 11/25/16 at 09:16; Status DC Fentanyl Citrate (Fentanyl 5ml Vial) 250 mcg STK-MED ONCE .ROUTE ; Start at 09:15; Stop 11/25/16 at 09:16; Status DC Lidocaine/Sodium Bicarbonate (Buffered Lidocaine 1%) 20 ml STK-MED ONCE IJ ; Start 11/25/16 at 10:52; Stop 11/25/16 at 10:53; Status DC Active Scripts Active Reported Hydrocodone-Apap 7.5-325 (Hydrocodone Bit/Acetaminophen) 1 Each Tablet 1 Tab PO PRN Q6HRS PRN Meloxicam 7.5 Mg Tablet 1 Tab PO DAILY Coreg (Carvedilol) 6.25 Mg Tablet 1 Tab PO BID Symbicort 160-4.5 Mcg Inhaler (Budesonide/Formoterol Fumarate) 10.2 Gm Hfa.aer.ad 2 Puff IH BID Lipitor (Atorvastatin Calcium) 10 Mg Tablet 1 Tab PO QHS Metformin Hcl 500 Mg Tablet 1 Tab PO BID next dose tonight at bedtime 05-05 Diltiazem 24HR Cd (Diltiazem Hcl) 120 Mg Cap.er.24h 1 Cap PO DAILY next dose tomorrow 05-06 at 8:00 AM Proventil Hfa Inhaler (Albuterol Sulfate) 6.7 Gm Hfa.aer.ad 1 Puff IH PRN Q4HRS PRN Proair Hfa Inhaler (Albuterol Sulfate) 8.5 Gm Hfa.aer.ad 1 Puff INH PRN Q6HRS PRN Ambien (Zolpidem Tartrate) 10 Mg Tablet 1 Tab PO HS next dose tonight at bedtime 05-05 Deltasone (Prednisone) 20 Mg Tablet 10 Mg PO next dose tomorrow 05-06 at 8:00 AM Klor-Con 10 (Potassium Chloride) 10 Meq Tablet.er 1 Tab PO DAILY next dose tomorrow 05-06 at 8:00 AM Lasix (Furosemide) 40 Mg Tablet 1 Tab PO PRN PRN Advair 250-50 Diskus (Fluticasone/Salmeterol) 1 Each Disk.w.dev 1 Puff IH BID Doxycycline Hyclate 100 Mg Tablet 1 Tab PO BID Aspir 81 (Aspirin) 81 Mg Tablet.dr 1 Tab PO DAILY next dose tomorrow 05-06 at 8:00 AM Vitals/I & O Vital Sign - Last 24 Hours 11/25/16 11/25/16 11/25/16 11/25/16 10:58 11:15 11:15 12:21 Temp 98.2 98.2 Pulse 82 82 82 Resp 14 B/P 118/79 118/79 118/79 Pulse Ox 90 O2 Delivery Nasal Cannula Nasal Cannula O2 Flow Rate 3.0 3.0 11/25/16 11/25/16 11/25/16 11/25/16 15:00 16:25 16:36 19:47 Temp 98.0 98.0 Pulse 67 67 Resp 16 B/P 111/61 111/61 Pulse Ox 96 93 93 O2 Delivery Nasal Cannula Nasal Cannula Nasal Cannula O2 Flow Rate 3.0 3.0 3.0 11/25/16 11/25/16 11/25/1611/25/17 19:48 19:48 20:00 22:19 Temp 97.7 97.7 Pulse 63 Resp 16 B/P 109/70 Pulse Ox 92 93 O2 Delivery Nasal Cannula Nasal Cannula Nasal Cannula Nasal Cannula O2 Flow Rate 2.0 3.0 3.0 3.0 11/25/16 11/25/16 11/26/16 11/26/16 23:21 23:34 03:40 07:00 Temp 97.7 97.9 97.8 97.7 97.9 97.8 Pulse 70 69 82 Resp 18 16 16 B/P 98/55 117/73 107/60 Pulse Ox 94 94 93 94 O2 Delivery Nasal Cannula Nasal Cannula Nasal Cannula Nasal Cannula O2 Flow Rate 2.0 2.0 2.0 3.0 11/26/16 11/26/16 11/26/16 11/26/16 08:00 09:00 09:29 09:29 Pulse 82 82 B/P 107/60 107/60 Pulse Ox 98 98 O2 Delivery Nasal Cannula Nasal Cannula O2 Flow Rate 3.0 3.0 Intake and Output 11/25/16 11/25/16 11/26/16 15:00 23:00 07:00 Intake Total 340 ml 620 ml Output Total 600 ml 600 ml 1250 ml Balance -260 ml -600 ml -630 ml FELIBERTO ANDERSON MD Nov 26, 2016 10:16
--- NOTE | 2016-11-26 10:18 | PDOC ---
Subjective: Subjective: Onc f/u- Possible MPN Sleeping this AM. Accidentally ate yesterday, bmbx rescheduled for today. No new issues. Objective: Vital Signs: Vital Signs Date Time Temp Pulse Resp B/P Pulse Ox O2 Delivery O2 Flow Rate FiO2 11/26/16 09:29 98 Nasal Cannula 3.0 11/26/16 09:00 82 107/60 11/26/16 07:00 97.8 16 97.8 Physical Exam: General: Alert, Oriented X3, No acute distress Lungs: Other (no resp distress) Psych/Mental Status: Mental status NL, Mood NL Skin: No rashes Labs/Imaging: Uric acid 7.6 Abd U/S- no splenomegaly Assessment/Plan A/P: 1. Persistent and consistently increasing neutrophilia, monocytosis and lymphocytosis since 03/23 concerning for an underlying myeloproliferative disorder - Abd u/s neg for [facility] - Bmbx today 2. Mildly elevated uric acid - Continue allopurinol empirically until bmbx path back Path will take >1.5 wk to return given molecular tests needed as well; will set up f/u as outpt. IRENA FAM DO Nov 26, 2016 10:18
[2016-11-26] MEDS ORDERED: LIDOCAINE 1% / SOD BICARB 8.4% 20 ML VIAL. IJ ONE ×2 (11:07→11:30)
[2016-11-26] MEDS ORDERED: MIDAZOLAM HCL/PF 5 MG/5 ML VIAL. ONE (11:16)
[2016-11-26] MEDS ORDERED: NALOXONE 0.4 MG/ML VIAL. ONE (11:16)
[2016-11-26] MEDS ORDERED: FLUMAZENIL 0.5 MG/5 ML VIAL. IV ONE (11:16)
[2016-11-26] MEDS ORDERED: FENTANYL PF 250 MCG/5 ML VIAL. ONE (11:17)
[2016-11-26] MEDS ORDERED: FENTANYL PF 250 MCG/5 ML VIAL. IV ONE (11:30)
[2016-11-26] MEDS ORDERED: MIDAZOLAM HCL/PF 5 MG/5 ML VIAL. IV ONE (11:30)
--- NOTE | 2016-11-26 11:40 | PDOC ---
CARDIO Progress Notes Date and Time Date of Service 11/26/16 Time of Evaluation 1100 Subjective Subjective: No Chest Pain, No shortness of breath, No Palpitations Comments: no acute events overnight Vitals Vitals Vital Signs Date Time Temp Pulse Resp B/P Pulse Ox O2 Delivery O2 Flow Rate FiO2 11/26/16 11:00 97.8 84 16 116/69 94 Nasal Cannula 3.0 97.8 Weight Weight [ ] Input and Output Intake and Output Intake and Output 11/26/16 07:00 Intake Total 960 ml Output Total 2450 ml Balance -1490 ml Intake Oral 860 ml IV Total 100 ml Output Urine Total 2450 ml Laboratory Labs Laboratory Tests Test 11/25/16 11:37 11/25/16 17:12 11/25/16 21:07 11/26/16 05:45 Glucose (Fingerstick) 173mg/dL (70-99) 104mg/dL (70-99) 136mg/dL (70-99) White Blood Count 53.4x10^3/uL (4.0-11.0) Red Blood Count 4.19x10^6/uL (4.30-5.70) Hemoglobin 12.6g/dL (13.0-17.5) Hematocrit 41.4% (39.0-53.0) Mean Corpuscular Volume 99fL (79-100) Mean Corpuscular Hemoglobin 30pg (25-35) Mean Corpuscular Hemoglobin Concent 31g/dL (31-37) Red Cell Distribution Width 17.0% (11.5-14.5) Platelet Count 184x10^3/uL (140-400) Neutrophils (%) (Auto) 84% (31-73) Lymphocytes (%) (Auto) 6% (24-48) Monocytes (%) (Auto) 6% (0-9) Eosinophils (%) (Auto) 1% (0-3) Basophils (%) (Auto) 3% (0-3) Neutrophils # (Auto) 45.0x10^3uL (1.8-7.7) Lymphocytes # (Auto) 2.9x10^3/uL (1.0-4.8) Monocytes # (Auto) 3.4x10^3/uL (0.0-1.1) Eosinophils # (Auto) 0.5x10^3/uL (0.0-0.7) Basophils # (Auto) 1.5x10^3/uL (0.0-0.2) Segmented Neutrophils % 24% (35-66) Band Neutrophils % 30% (0-9) Lymphocytes % 6% (24-48) Monocytes % 4% (0-10) Eosinophils % 2% (0-5) Basophils % 4% (0-3) Metamyelocytes % 4% (0-0) Myelocytes % 26% (0-0) Nucleated Red Blood Cells 2 Platelet Estimate Adequate (ADEQUATE) Sodium Level 143mmol/L (136-145) Potassium Level 4.2mmol/L (3.5-5.1) Chloride Level 101mmol/L (98-107) Carbon Dioxide Level 41mmol/L (21-32) Anion Gap 1 (6-14) Blood Urea Nitrogen 16mg/dL (8-26) Creatinine 1.1mg/dL (0.7-1.3) Estimated GFR (Cockcroft-Gault) 66.8 Glucose Level 103mg/dL (70-99) Calcium Level 9.0mg/dL (8.5-10.1) Test 11/26/16 07:11 Glucose (Fingerstick) 103mg/dL (70-99) Physical Exam HEENT: Neck Supple W Full Motion Chest: Symmetric LUNGS: Other (fine expiratory wheezes ) Heart: S1S2, irregularly irregular (tele: AFIB rate 80) Abdomen: Soft N/T, Other (obese ) Extremities: No Edema, No Calf Tenderness Neurology: alert, oriented, follow commands Assessment Assessment 1. Mild acute on chronic diastolic heart failure; compensated 2. Acute on chronic respiratory failure with AE COPD 3. Leukocytosis 4. Chronic atrial fib 5. Hyperlipidemia 6. Hypertension 7. ? Myeloproliferative disorder; bone marrow biopsy pending 8. Diabetes 9. Morbid obesity 10 . h/o abnormal MPI Recommendations Echo with preserved LV function; no WMA Continue Cardizem and Coreg for rate control presently on ASA for stroke prevention; [id number] score 4, correlating with a moderate-high risk for stroke. Discussed with hematology, Dr. Daniels and sister ; will begin Xarelto for stroke prevention Continue with medical management as patient appears stable from CV perspective. Patient to f/u with Dr. Saenz in 4-6 weeks. Will consider further ischemic workup, following completion of hematology workup Hem/Onc outpatient follow up INES PAUL APRN Nov 26, 2016 11:40
--- NOTE | 2016-11-26 11:48 | PDOC ---
MODERATE SEDATION ASSESSMENT RISKS/ALTERNATIVES Risks/Alternatives Risks and alternatives of this type of sedation and procedure discussed with: RISK/ALTERNATIVES: Patient H & P ON CHART H & P H & P on chart and reviewed for co-morbid conditions and appropriate labs. H&P ON CHART: Yes STATUS PREG STATUS ASSESSED: N/A MEDS/ALLERGIES REVIEWED Meds/Allergies Reviewed Medications and Allergies including time and route of recently administered narcotics and sedatives. MEDS/ALLERGIES REVIEWED: Yes ASA RATING ASA RATING: III AIRWAY ASSESSMENT Airway Assessment Airway patency, oral function limitations, presence of caps, crowns, dentures, partials, and ability to extend neck assessed. AIRWAY ASSESSMENT: Yes MALLAMPATI SCORE MALLAMPATI SCORE: III PRE-SEDATION ASSESSMENT PRE-SEDATION ASSESSMENT: Yes ELIZABETH JO MD Nov 26, 2016 11:48
--- NOTE | 2016-11-26 11:52 | PDOC ---
Exam Channel Business Manager Channel Business Manager Nilesh Pre-Procedure Diagnosis Pre-Procedure Diagnosis 66 YO male with leukocytosis, with abnl PBS---elevated neutrophils and bands, and with metamyelocytes and myelocytes---? leukemia Post-Procedure Diagnosis Post-Procedure Diagnosis Same Procedure Performed Procedure Performed CT guided bone marrow asp/bx Type of Anesthesia Type of Anesthesia Local + Mod sedation Estimated Blood Loss EBL: Minimal Specimens Specimans 6 cc bone marrow aspirate + 1 11G core bx----to heme-path Condition of Patient Condition of Patient Stable. No apparent complication. Disposition Disposition From IR return to [address] [place] [address] recovery. F/u with Dr Daniels. Full report to follow. ELIZABETH JO MD Nov 26, 2016 11:52
--- NOTE | 2016-11-26 12:22 | RAD ---
CT-guided power drill assisted bone marrow aspiration and biopsy Indication: 66-year-old male with significant leukocytosis and with abnormal peripheral blood smear, including elevated PMNs, bands, metamyelocytes, and myelocytes, raising concern for leukemia. CT-guided bone marrow aspirate/biopsy has been requested by hematology-oncology. Anesthesia: 15 minutes moderate sedation was provided utilizing a total of 1 mg Versed and 50 mcg fentanyl, IV. The patient was appropriately monitored by a qualified independent observer throughout the time of moderate sedation. Procedure: Informed consent was obtained from the patient. He was placed prone on the CT scanner. Preliminary noncontrast CT images were obtained through pelvis. A left posterior skin site suitable for CT-guided bone marrow aspirate/biopsy from posterior left iliac bone was selected and marked. That area was prepped and draped in the usual sterile fashion. Conscious sedation was provided with IV Versed and fentanyl. Using aseptic technique, local anesthesia, and CT guidance, and the [employer] power truck driver rubbish collector, successful percutaneous entry was achieved through posterior cortex of left iliac bone. Approximately 5 cc of bone marrow was promptly aspirated, and was submitted to hematology personnel in the CT suite. Using CT guidance, the [employer] power truck driver rubbish collector was then utilized to obtain a single, 11-gauge core biopsy sample from marrow cavity of left iliac bone. The biopsy sample was submitted to pathology in formalin. A sterile dressing was applied over the biopsy skin puncture site. Patient tolerated the procedure well without apparent complication. Impression: Successful, uneventful CT-guided bone marrow aspirate and biopsy, utilizing the [employer] power truck driver rubbish collector biopsy system, as described. PQRS compliance statement: One or more of the following individualized dose reduction techniques were utilized for this CT procedure: 1. Automated exposure control. 2. Adjustment of MA and/or KV according to patient size. 3. Iterative reconstruction technique.
[2016-11-26] MEDS ORDERED: RIVAROXABAN 10 MG TABLET. PO SCH (17:00)
[2016-11-26] MEDS: ATORVASTATIN CALCIUM 40 MG TABLET. PO SCH (21:32)
[2016-11-26] MEDS: ZOLPIDEM 5 MG TABLET. PO PRN (23:02)
[2016-11-26] MEDS: HYDROCODONE/APAP 5/325MG TABLET. PO PRN (23:02)
[2016-11-27 03:50] VITALS: BP 114/80
[2016-11-27] MEDS: IPRATRPIUM/ALBUTEROL 0.5/2.5MG 3 ML NEBU. NEB SCH ×2 (06:20→10:53)
[2016-11-27] MEDS: BUDESONIDE 0.5 MG/2 ML NEBU. NEB SCH (06:20)
[2016-11-27 06:55] VITALS: BP 121/64
[2016-11-27] MEDS: DILTIAZEM HCL 120 MG CAP.ER.24H PO SCH (08:06)
[2016-11-27] MEDS: HYDROCODONE/APAP 5/325MG TABLET. PO PRN (08:07)
[2016-11-27] MEDS: POTASSIUM CHLORIDE 10 MEQ TABLET.ER. PO SCH (08:07)
[2016-11-27] MEDS: ALLOPURINOL 300 MG TABLET. PO SCH (08:08)
[2016-11-27] MEDS: FUROSEMIDE 40 MG TABLET. PO SCH (08:09)
[2016-11-27] MEDS: ASPIRIN ENTERIC COATED 81 MG TABLET.DR. PO SCH (08:09)
[2016-11-27] MEDS: METFORMIN 500 MG TABLET. PO SCH (08:09)
[2016-11-27] MEDS: CARVEDILOL 6.25 MG TABLET. PO SCH (08:09)
[2016-11-27] MEDS: MELOXICAM 7.5 MG TABLET PO SCH (08:09)
[2016-11-27] MEDS: CEFTRIAXONE SODIUM 1 GM in IV NORMAL SALINE 50ML 50 ML IV SCH ×2 (08:10→09:00)
--- NOTE | 2016-11-27 08:19 | PDOC ---
PULMONARY PROGRESS NOTES Subjective feels better Vitals Vital Signs Date Time Temp Pulse Resp B/P Pulse Ox O2 Delivery O2 Flow Rate FiO2 11/27/16 08:09 85 121/64 11/27/16 08:07 95 Nasal Cannula 3.0 11/27/16 06:55 98.0 18 98.0 General: Alert, No acute distress Lungs: Wheezing (faint) Cardiovascular: S1, S2 Abdomen: Soft Neuro Exam: Alert Extremities: Other (1+edema) Labs Laboratory Tests Test 11/25/16 11:37 11/25/16 17:12 11/25/16 21:07 11/26/16 05:45 Glucose (Fingerstick) 173mg/dL (70-99) 104mg/dL (70-99) 136mg/dL (70-99) White Blood Count 53.4x10^3/uL (4.0-11.0) Red Blood Count 4.19x10^6/uL (4.30-5.70) Hemoglobin 12.6g/dL (13.0-17.5) Hematocrit 41.4% (39.0-53.0) Mean Corpuscular Volume 99fL (79-100) Mean Corpuscular Hemoglobin 30pg (25-35) Mean Corpuscular Hemoglobin Concent 31g/dL (31-37) Red Cell Distribution Width 17.0% (11.5-14.5) Platelet Count 184x10^3/uL (140-400) Neutrophils (%) (Auto) 84% (31-73) Lymphocytes (%) (Auto) 6% (24-48) Monocytes (%) (Auto) 6% (0-9) Eosinophils (%) (Auto) 1% (0-3) Basophils (%) (Auto) 3% (0-3) Neutrophils # (Auto) 45.0x10^3uL (1.8-7.7) Lymphocytes # (Auto) 2.9x10^3/uL (1.0-4.8) Monocytes # (Auto) 3.4x10^3/uL (0.0-1.1) Eosinophils # (Auto) 0.5x10^3/uL (0.0-0.7) Basophils # (Auto) 1.5x10^3/uL (0.0-0.2) Segmented Neutrophils % 24% (35-66) Band Neutrophils % 30% (0-9) Lymphocytes % 6% (24-48) Monocytes % 4% (0-10) Eosinophils % 2% (0-5) Basophils % 4% (0-3) Metamyelocytes % 4% (0-0) Myelocytes % 26% (0-0) Nucleated Red Blood Cells 2 Platelet Estimate Adequate (ADEQUATE) Sodium Level 143mmol/L (136-145) Potassium Level 4.2mmol/L (3.5-5.1) Chloride Level 101mmol/L (98-107) Carbon Dioxide Level 41mmol/L (21-32) Anion Gap 1 (6-14) Blood Urea Nitrogen 16mg/dL (8-26) Creatinine 1.1mg/dL (0.7-1.3) Estimated GFR (Cockcroft-Gault) 66.8 Glucose Level 103mg/dL (70-99) Calcium Level 9.0mg/dL (8.5-10.1) Test 11/26/16 07:11 11/26/16 12:08 11/26/16 16:58 11/26/16 21:11 Glucose (Fingerstick) 103mg/dL (70-99) 108mg/dL (70-99) 98mg/dL (70-99) 131mg/dL (70-99) Test 11/27/16 07:08 Glucose (Fingerstick) 168mg/dL (70-99) Laboratory Tests Test 11/26/16 12:08 11/26/16 16:58 11/26/16 21:11 11/27/16 07:08 Glucose (Fingerstick) 108mg/dL (70-99) 98mg/dL (70-99) 131mg/dL (70-99) 168mg/dL (70-99) Medications Active Scripts Medications Dose Route/Sig Days Date Category Dose Instructions Hydrocodone-Apap 7.5-325 (Hydrocodone Bit/Acetaminophen) 1 Each Tablet 1 Tab PO PRN Q6HRS PRN 11/24/16 Reported Meloxicam 7.5 Mg Tablet 1 Tab PO DAILY 11/24/16 Reported Coreg (Carvedilol) 6.25 Mg Tablet 1 Tab PO BID 11/24/16 Reported Symbicort 160-4.5 Mcg Inhaler (Budesonide/Formoterol Fumarate) 10.2 Gm Hfa.aer.ad 2 Puff IH BID 11/24/16 Reported Lipitor (Atorvastatin Calcium) 10 Mg Tablet 1 Tab PO QHS 11/24/16 Reported Metformin Hcl 500 Mg Tablet 1 Tab PO BID 05/04/16 Reported next dose tonight at bedtime 05-05 Diltiazem 24HR Cd (Diltiazem Hcl) 120 Mg Cap.er.24h 1 Cap PO DAILY 05/04/16 Reported next dose tomorrow - at 8:00 AM Proventil Hfa Inhaler (Albuterol Sulfate) 6.7 Gm Hfa.aer.ad 1 Puff IH PRN Q4HRS PRN 05/04/16 Reported Proair Hfa Inhaler (Albuterol Sulfate) 8.5 Gm Hfa.aer.ad 1 Puff INH PRN Q6HRS PRN 05/04/16 Reported Ambien (Zolpidem Tartrate) 10 Mg Tablet 1 Tab PO HS 05/04/16 Reported next dose tonight at bedtime 05-05 Deltasone (Prednisone) 20 Mg Tablet 10 Mg PO 05/04/16 Reported next dose tomorrow - at 8:00 AM Klor-Con 10 (Potassium Chloride) 10 Meq Tablet.er 1 Tab PO DAILY 05/04/16 Reported next dose tomorrow - at 8:00 AM Lasix (Furosemide) 40 Mg Tablet 1 Tab PO PRN PRN 05/04/16 Reported Advair 250-50 Diskus (Fluticasone/Salmeterol) 1 Each Disk.w.dev 1 Puff IH BID 05/04/16 Reported Doxycycline Hyclate 100 Mg Tablet 1 Tab PO BID 05/04/16 Reported Aspir 81 (Aspirin) 81 Mg Tablet.dr 1 Tab PO DAILY 05/04/16 Reported next dose tomorrow - at 8:00 AM Impression . 1. Dyspnea secondary to acute exacerbation of chronic obstructive pulmonary disease triggered by respiratory tract infection and diastolic CHF 2. Abnormal chest x-ray c/w mild diffuse interstitial infiltrates . ct chest with mild CHF 3. Markedly elevated white cell count/ ?MDS. Hematology following. 4. History of obstructive sleep apnea, not on CPAP, according to history. He is awaiting for CPAP titration study. 5. Acute hypoxic respiratory failure secondary to chronic obstructive pulmonary disease exacerbation and acute bronchitis. Plan . 1. Continue with present DuoNebs. 2. Continue with present oxygen with gradual wean. 3. diastolic HF/diuresis per cardiology 4. empiric antibiotic. 5. Monitor white cell count. BM aspiration done. awaiting results LYSSA WOODSON MD Nov 27, 2016 08:19
--- NOTE | 2016-11-27 09:59 | PDOC3 ---
Discharge Summary Visit Information Date of Admission: Nov 24, 2016 Date of Discharge: Nov 27, 2016 Admitting Diagnosis Comment: 1. Leukocytosis, r/o MDS 2. COPD flare, O2 dependent 28/02 3. CHF combined stable 4. Chronic LE swelling, stable 5. Obesity with mild to mod pCM Final Diagnosis Problems Medical Problems: (1) COPD with acute exacerbation Status: Acute (2) Leukocytosis Status: Acute (3) Leukocytosis, unspecified Status: Acute Brief Hospital Course Allergies Allergies Coded Allergies Type Severity Reaction Last Updated Verified No Known Allergies Allergy Unknown 05/04/16 Yes Vital Signs Vital Signs Date Time Temp Pulse Resp B/P Pulse Ox O2 Delivery O2 Flow Rate FiO2 11/27/16 08:14 Nasal Cannula 3.0 11/27/16 08:09 85 121/64 11/27/16 08:07 95 11/27/16 06:55 98.0 18 98.0 Lab Results Laboratory Tests Test 11/25/16 11:37 11/25/16 17:12 11/25/16 21:07 11/26/16 05:45 Glucose (Fingerstick) 173mg/dL (70-99) 104mg/dL (70-99) 136mg/dL (70-99) White Blood Count 53.4x10^3/uL (4.0-11.0) Red Blood Count 4.19x10^6/uL (4.30-5.70) Hemoglobin 12.6g/dL (13.0-17.5) Hematocrit 41.4% (39.0-53.0) Mean Corpuscular Volume 99fL (79-100) Mean Corpuscular Hemoglobin 30pg (25-35) Mean Corpuscular Hemoglobin Concent 31g/dL (31-37) Red Cell Distribution Width 17.0% (11.5-14.5) Platelet Count 184x10^3/uL (140-400) Neutrophils (%) (Auto) 84% (31-73) Lymphocytes (%) (Auto) 6% (24-48) Monocytes (%) (Auto) 6% (0-9) Eosinophils (%) (Auto) 1% (0-3) Basophils (%) (Auto) 3% (0-3) Neutrophils # (Auto) 45.0x10^3uL (1.8-7.7) Lymphocytes # (Auto) 2.9x10^3/uL (1.0-4.8) Monocytes # (Auto) 3.4x10^3/uL (0.0-1.1) Eosinophils # (Auto) 0.5x10^3/uL (0.0-0.7) Basophils # (Auto) 1.5x10^3/uL (0.0-0.2) Segmented Neutrophils % 24% (35-66) Band Neutrophils % 30% (0-9) Lymphocytes % 6% (24-48) Monocytes % 4% (0-10) Eosinophils % 2% (0-5) Basophils % 4% (0-3) Metamyelocytes % 4% (0-0) Myelocytes % 26% (0-0) Nucleated Red Blood Cells 2 Platelet Estimate Adequate (ADEQUATE) Sodium Level 143mmol/L (136-145) Potassium Level 4.2mmol/L (3.5-5.1) Chloride Level 101mmol/L (98-107) Carbon Dioxide Level 41mmol/L (21-32) Anion Gap 1 (6-14) Blood Urea Nitrogen 16mg/dL (8-26) Creatinine 1.1mg/dL (0.7-1.3) Estimated GFR (Cockcroft-Gault) 66.8 Glucose Level 103mg/dL (70-99) Calcium Level 9.0mg/dL (8.5-10.1) Test 11/26/16 07:11 11/26/16 12:08 11/26/16 16:58 11/26/16 21:11 Glucose (Fingerstick) 103mg/dL (70-99) 108mg/dL (70-99) 98mg/dL (70-99) 131mg/dL (70-99) Test 11/27/16 07:08 Glucose (Fingerstick) 168mg/dL (70-99) Laboratory Tests Test 11/26/16 12:08 11/26/16 16:58 11/26/16 21:11 11/27/16 07:08 Glucose (Fingerstick) 108mg/dL (70-99) 98mg/dL (70-99) 131mg/dL (70-99) 168mg/dL (70-99) Brief Hospital Course Mr. Newton is a 66 old heavy set male transferred from another [facility] facility to get BMA and heme onc, He was admitted with WBC 60s, new to him,pt poor historian, maybe steroid use not too long ago,. BUt indices concerning/need to r./o MDS. Underwent BMA. 1.5 weeks for results to come out, will go home with HH. PT recs SNU, pt does not wantDw RN and heme onc Pt seen and examined NO change in meds DIspo: HH Proc; BMA WBC on dc 50s Discharge Information Condition at Discharge: Improved, Stable Disposition/Orders: D/C to Home w/ HH Scheduled Aspirin (Aspir 81) 1 TAB PO DAILY (Reported) Atorvastatin Calcium (Lipitor) 1 TAB PO QHS (Reported) Budesonide/Formoterol Fumarate (Symbicort 160-4.5 Mcg Inhaler) 2 PUFF IH BID ( Reported) Carvedilol (Coreg) 1 TAB PO BID (Reported) Diltiazem Hcl (Diltiazem 24HR Cd) 1 CAP PO DAILY (Reported) Doxycycline Hyclate (Doxycycline Hyclate) 1 TAB PO BID (Reported) Fluticasone/Salmeterol (Advair 250-50 Diskus) 1 PUFF IH BID (Reported) Meloxicam (Meloxicam) 1 TAB PO DAILY (Reported) Metformin Hcl (Metformin Hcl) 1 TAB PO BID (Reported) Potassium Chloride (Klor-Con 10) 1 TAB PO DAILY (Reported) Zolpidem Tartrate (Ambien) 1 TAB PO HS (Reported) Scheduled PRN Albuterol Sulfate (Proair Hfa Inhaler) 1 PUFF INH PRN Q6HRS PRN PRN SHORTNESS OF BREATH (Reported) Albuterol Sulfate (Proventil Hfa Inhaler) 1 PUFF IH PRN Q4HRS PRN PRN SHORTNESS OF BREATH (Reported) Furosemide (Lasix) 1 TAB PO PRN PRN PRN SHORTNESS OF BREATH (Reported) Hydrocodone Bit/Acetaminophen (Hydrocodone-Apap 7.5-325 ) 1 TAB PO PRN Q6HRS PRN PRN PAIN (Reported) Miscellaneous Medications Prednisone (Deltasone) 10 MG PO (Reported) Discontinued Medications Carvedilol (Coreg) 1 TAB PO BID (Reported) FELIBERTO ANDERSON MD Nov 27, 2016 09:58
[2016-11-27 10:48] VITALS: BP 112/65
== END 2016-11-27 14:48 | disposition home health service (06) | DRG 811 ==
LOC: MERGE 04:46 → 6 SOUTH 04:46
PROVIDERS: ADMIT Internal Medicine; ATTEND Internal Medicine
PROC: 07DR3ZX Extraction of Iliac Bone Marrow, Percutaneous Approach, Diagnostic (ICD-10-PCS; principal; 2016-11-26)
DX: D46.9 Myelodysplastic syndrome, unspecified (principal); I50.43 Acute on chronic combined systolic (congestive) and diastolic (congestive) heart failure; J96.21 Acute and chronic respiratory failure with hypoxia; J44.1 Chronic obstructive pulmonary disease with (acute) exacerbation; Z68.41 Body mass index [BMI] 40.0-44.9, adult; J98.11 Atelectasis; J44.0 Chronic obstructive pulmonary disease with (acute) lower respiratory infection; E44.0 Moderate protein-calorie malnutrition; J47.0 Bronchiectasis with acute lower respiratory infection; I11.0 Hypertensive heart disease with heart failure; J20.9 Acute bronchitis, unspecified; E11.9 Type 2 diabetes mellitus without complications; E66.01 Morbid (severe) obesity due to excess calories; I48.2 Chronic atrial fibrillation; E78.5 Hyperlipidemia, unspecified; I25.10 Atherosclerotic heart disease of native coronary artery without angina pectoris; Z80.9 Family history of malignant neoplasm, unspecified; Z83.3 Family history of diabetes mellitus; Z87.891 Personal history of nicotine dependence; Z99.81 Dependence on supplemental oxygen; Z90.49 Acquired absence of other specified parts of digestive tract; Z79.82 Long term (current) use of aspirin
CPT/HCPCS: 36415; 38221; 71010; 71250; 76700; 77012; 80048; 80053; 82947; 83735; 84550; 85007; 85027; 85610; 88184; 88185; 88237; 93306; 94640; 94760; C1892; G0364; J0696; J2250; J3010; J7620; 97535